=== PATIENT | male | born 1955 | race Caucasian/White ===

== ENCOUNTER 2019-11-02 09:15 | Outpatient (CLI) | payer MEDICARE, OTHER, SELFPAY ==
[2019-11-02 10:00] VITALS: BP 145/91; PULSE 66; RESP 18; TEMP 36.5; O2SAT 94
[2019-11-02] MEDS: acetaminophen 325 mg Tablet 975 MG (10:11)
[2019-11-02] MEDS: diphenhydrAMINE 25 mg Capsule (10:11)
[2019-11-02 11:23] VITALS: BP 135/86; PULSE 60; RESP 16; TEMP 36.4; O2SAT 94
--- NOTE | 2019-11-02 11:24 | PC.NURSE ---
IV dc'd from left AC. cath intact. Pressure dressing applied.
== END 2019-11-02 09:16 | disposition home or self-care (01) ==
LOC: RHEOACUTE 09:20
PROVIDERS: Family Provider Family Medicine; PCP Family Medicine; Visit Provider Internal Medicine Rheumatology
DX: M05.9 Rheumatoid arthritis with rheumatoid factor, unspecified (principal); Z79.899 Other long term (current) drug therapy; K13.70 Unspecified lesions of oral mucosa; Z79.52 Long term (current) use of systemic steroids; M19.90 Unspecified osteoarthritis, unspecified site; Z87.891 Personal history of nicotine dependence
CPT/HCPCS: 36415; 80076; 82565; 85651; 86140; 96365; 96374; 99214; J3262

== ENCOUNTER → 2019-11-02 15:05 | Outpatient (BNVA) | payer MEDICARE, SELFPAY | PROVIDERS: Family Provider Family Medicine; PCP Family Medicine; Visit Provider Internal Medicine Rheumatology | DX: M05.9 Rheumatoid arthritis with rheumatoid factor, unspecified (principal); Z79.899 Other long term (current) drug therapy; K13.70 Unspecified lesions of oral mucosa; Z71.89 Other specified counseling | CPT/HCPCS: 85025 ==

== ENCOUNTER → 2019-11-10 14:36 | Outpatient (BNVA) | payer MEDICARE, SELFPAY | PROVIDERS: Family Provider Family Medicine; PCP Family Medicine; Referring Provider Family Medicine; Visit Provider Otolaryngology | DX: K13.70 Unspecified lesions of oral mucosa (principal) | CPT/HCPCS: 99203; 99214 ==

== ENCOUNTER 2019-12-14 10:24 | Outpatient (CLI) | payer MEDICARE, OTHER, SELFPAY ==
[2019-12-14 10:45] VITALS: BP 150/88; PULSE 60; RESP 16; TEMP 36.7; O2SAT 92
[2019-12-14] MEDS: acetaminophen 325 mg Tablet 975 MG PO (11:17)
[2019-12-14] MEDS: diphenhydrAMINE 25 mg Capsule PO (11:17)
[2019-12-14 12:10] VITALS: BP 150/88; PULSE 60; RESP 16; TEMP 36.6; O2SAT 92
== END 2019-12-14 10:25 | disposition home or self-care (01) ==
LOC: RHEOACUTE 10:25
PROVIDERS: Family Provider Family Medicine; PCP Family Medicine; Visit Provider Internal Medicine Rheumatology
DX: M06.9 Rheumatoid arthritis, unspecified (principal); Z79.899 Other long term (current) drug therapy; Z11.1 Encounter for screening for respiratory tuberculosis
CPT/HCPCS: 36415; 80076; 82565; 85025; 85651; 86140; 86480; 96365; J3262

== ENCOUNTER → 2019-12-14 10:55 | Outpatient (BNVA) | payer MEDICARE, SELFPAY | PROVIDERS: Family Provider Family Medicine; PCP Family Medicine | DX: Z79.899 Other long term (current) drug therapy (principal) | CPT/HCPCS: 85025 ==

== ENCOUNTER 2020-01-02 08:26 | Outpatient (CLI) | payer MEDICARE, SELFPAY ==
--- NOTE | 2020-01-02 08:43 | MR_ITS ---
WS: [id number] INDICATION: Incidental liver mass TECHNIQUE: MRI of the abdomen without and with gadolinium enhancement. Coronal 2-D fiesta, axial T2, axial dual Echo, axial 2-D fiesta, pre and postgadolinium axial T1 fat saturation COMPARISON: Ultrasound gallbladder November 17, 2017 FINDINGS: Hepatomegaly with diffuse fatty infiltration of the liver. No intrahepatic biliary ductal d ilatation. Normal portal vein and splenic vein. T1 and T2 hyperintense lesion involving the right hep atic lobe near the diaphragm measuring approximately 2.9 x 2.7 CM. This lesion demonstrates diffuse h omogeneous enhancement on post gadolinium imaging. Imaging characteristics are nonspecific but differ ential considerations include focal nodular hyperplasia, adenoma, and atypical cavernous hemangioma. Neoplasm/HCC is not entirely excluded. Recommend followed up in [address] abdomen pelvis liver protocol or MRI. Atelectasis in the lung bases. Normal gallbladder. Normal spleen. Normal GE junction. Upper abdominal aorta is normal. No hydronephrosis in either kidney. No upper abdominal lymphadenopathy. MR/MR abdomen wo/w con* [id number] IMPRESSION: 1. T1 and T2 hyperintense lesion right hepatic lobe posteriorly near the diap hragm. This demonstrates diffuse homogeneous enhancement. Differential consider ations include focal nodular hyperplasia, hepatic adenoma, and atypical caverno us hemangioma. HCC/neoplasm is not entirely excluded. Recommend 3 month follow- up with CT abdomen pelvis liver protocol or MRI. Percutaneous biopsy would be c mayela due to location high in the right hepatic lobe. 2. Hepatomegaly with diffuse fatty infiltration. This is unchanged since the r ecent ultrasound. No intrahepatic biliary ductal dilatation. 3. No hydronephrosis in either kidney. 4. Normal visualized upper abdominal aorta. 5. Normal gallbladder.
== END 2020-01-02 08:27 | disposition home or self-care (01) ==
LOC: RADWPI 08:31
PROVIDERS: Family Provider Family Medicine; PCP Family Medicine; Visit Provider Internal Medicine
DX: R16.0 Hepatomegaly, not elsewhere classified (principal); K76.9 Liver disease, unspecified
CPT/HCPCS: 74183; A9579

== ENCOUNTER 2020-01-18 10:29 | Outpatient (CLI) | payer MEDICARE, OTHER, SELFPAY ==
[2020-01-18 10:58] VITALS: BP 164/95; PULSE 60; RESP 16; TEMP 36.5; O2SAT 94
[2020-01-18] MEDS: diphenhydrAMINE 25 mg Capsule PO (11:21)
[2020-01-18] MEDS: acetaminophen 325 mg Tablet 975 MG PO (11:21)
--- NOTE | 2020-01-18 12:29 | PC.NURSE ---
Msg sent to PCP nurse re elevated BP.
[2020-01-18] MEDS: diphenhydrAMINE 25 mg Capsule (13:02)
[2020-01-18] MEDS: acetaminophen 325 mg Tablet 975 MG (13:03)
[2020-01-18 13:04] VITALS: BP 148/89; PULSE 52; RESP 16; TEMP 36.7; O2SAT 96
== END 2020-01-18 10:30 | disposition home or self-care (01) ==
LOC: RHEOACUTE 10:30
PROVIDERS: Family Provider Family Medicine; PCP Family Medicine; Visit Provider Internal Medicine Rheumatology
DX: M05.9 Rheumatoid arthritis with rheumatoid factor, unspecified (principal); R74.8 Abnormal levels of other serum enzymes; R16.0 Hepatomegaly, not elsewhere classified; Z79.899 Other long term (current) drug therapy; M19.90 Unspecified osteoarthritis, unspecified site; Z79.52 Long term (current) use of systemic steroids
CPT/HCPCS: 96365; 99214; J3262

== ENCOUNTER 2020-02-16 08:49 | Outpatient (CLI) | payer MEDICARE, OTHER, SELFPAY ==
[2020-02-16 09:10] VITALS: BP 134/88; PULSE 59; RESP 16; TEMP 36.8; O2SAT 96
[2020-02-16] MEDS: diphenhydrAMINE 25 mg Capsule PO (09:21)
[2020-02-16] MEDS: acetaminophen 325 mg Tablet 975 MG PO (09:21)
[2020-02-16 11:05] VITALS: BP 131/86; PULSE 54; RESP 16; TEMP 36.6; O2SAT 97
== END 2020-02-16 08:50 | disposition home or self-care (01) ==
LOC: RHEOACUTE 08:51
PROVIDERS: Family Provider Family Medicine; PCP Family Medicine; Visit Provider Internal Medicine Rheumatology
DX: M06.9 Rheumatoid arthritis, unspecified (principal)
CPT/HCPCS: 96365; J3262

== ENCOUNTER 2020-03-15 08:49 | Outpatient (CLI) | payer MEDICARE, OTHER, SELFPAY ==
[2020-03-15 09:00] VITALS: BP 141/88; PULSE 59; RESP 16; TEMP 36.5; O2SAT 98
[2020-03-15] MEDS: diphenhydrAMINE 25 mg Capsule PO (09:30)
[2020-03-15] MEDS: acetaminophen 325 mg Tablet 975 MG PO (09:30)
[2020-03-15 11:11] VITALS: BP 115/77; PULSE 56; RESP 16; TEMP 36.6
== END 2020-03-15 08:50 | disposition home or self-care (01) ==
LOC: RHEOACUTE 08:50
PROVIDERS: Family Provider Family Medicine; PCP Family Medicine; Visit Provider Internal Medicine Rheumatology
DX: M05.9 Rheumatoid arthritis with rheumatoid factor, unspecified (principal); Z79.899 Other long term (current) drug therapy
CPT/HCPCS: 36415; 80076; 82565; 85025; 85651; 86140; 96365; J3262

== ENCOUNTER 2020-04-12 08:49 | Outpatient (CLI) | payer MEDICARE, SELFPAY ==
[2020-04-12 09:00] VITALS: BP 133/85; PULSE 60; RESP 16; TEMP 36.6; O2SAT 97
[2020-04-12] MEDS: acetaminophen 325 mg Tablet 975 MG PO (09:45)
[2020-04-12] MEDS: diphenhydrAMINE 25 mg Capsule PO (09:45)
[2020-04-12 11:15] VITALS: BP 147/93; PULSE 60; RESP 16; O2SAT 98
== END 2020-04-12 08:50 | disposition home or self-care (01) ==
LOC: RHEOACUTE 08:50
PROVIDERS: Family Provider Family Medicine; PCP Family Medicine; Visit Provider Internal Medicine Rheumatology
DX: M06.09 Rheumatoid arthritis without rheumatoid factor, multiple sites (principal)
CPT/HCPCS: 96365; J3262

== ENCOUNTER 2020-04-27 15:24 | Outpatient (CLI) | payer MEDICARE, SELFPAY ==
--- NOTE | 2020-04-27 | USCV_ITS ---
Sergei Gray Age: 64 Gender: M : 1955 Exam Date: 04/27/2020 15:41 Ordering Phys: Joao Harley MD Technologist: Julia Juarez [place]am Location[place] [facility] [place]ication: KNOWN THORACIC AN. BP: / HR: 67 Rhythm: Sinus Technical Quality: Adequate MEASUREMENTS (Male / Female) Normal Values 2D ECHO LV Diastolic Diameter PLAX 5.2 cm 4.2 - 5.9 / 3.9 - 5.3 cm LV Systolic Diameter PLAX 3.1 cm LV Chamber Size 3.7 cm IVS Diastolic Thickness 1.4 cm 0.6 - 1.0 / 0.6 - 0.9 cm IVS Systolic Thickness 1.8 cm LVPW Diastolic Thickness 1.4 cm 0.6 - 1.0 / 0.6 - 0.9 cm LVPW Systolic Thickness 1.5 cm RV Chamber Size 3.2 cm LVOT Diameter 2.0 cm LV Ejection Fraction 2D Teich 71.2 % LV Ejection Fraction MOD 2C 58.6 % LV Ejection Fraction 2C AL 62.6 % LA Diameter 4.3 cm LA Width 2.6 cm LA Height 4.0 cm RA Width 2.2 cm RA Height 4.4 cm Aorta at Sinotubular Diameter 4.5 cm M-MODE LV Diastolic Diameter MM 6.2 cm 4.2 - 5.9 / 3.9 - 5.3 cm LV Systolic Diameter MM 4.5 cm LV Ejection Fraction MM Teich 51.6 % IVS Diastolic Thickness MM 1.5 cm 0.6 - 1.0 / 0.6 - 0.9 cm IVS Systolic Thickness MM 1.2 cm LVPW Diastolic Thickness MM 1.4 cm 0.6 - 1.0 / 0.6 - 0.9 cm LVPW Systolic Thickness MM 1.9 cm RV Diastolic Diameter MM 1.1 cm Aortic Annulus Diameter 4.1 cm LA Ao Ratio MM 1.0 MV E Point Septal Separation 0.3 cm DOPPLER AV Peak Velocity 183.0 cm/s LVOT Peak Velocity 96.0 cm/s AV Area Cont Eq vti 1.9 cm squared AV Area Cont Eq pk 1.7 cm squared MV Area PHT 3.3 cm squared Mitral E to A Ratio 1.4 MV E' Velocity 11.0 cm/s Mitral E to MV E' Ratio 9.4 Mitral E to LV E' Lateral Ratio 9.6 Mitral E to LV E' Septal Ratio 9.3 TR Peak Velocity 297.1 cm/s TR Peak Gradient 35.3 mmHg TR Mean Velocity 239.7 cm/s TR Mean Gradient 24.7 mmHg TR Velocity Time Integral 108.8 cm TV Peak E Velocity 76.0 cm/s Right Atrial Pressure 3.0 mmHg Pulmonary Artery Systolic Pressu 38.3 mmHg PV Peak Velocity 65.0 cm/s RV Acceleration Time 0.1 s RV Ejection Time 0.4 s RV AcT/ET 0.3 FINDINGS Left Ventricle Normal left ventricular size, systolic function and wall thickness, with no regional wall motion abnormalities. Left ventricular ejection fraction is estimated at 65%. Normal diastolic function. Right Ventricle Normal right ventricular size and systolic function, RVSP 35 mmHg. Right Atrium Normal right atrial size. Right atrial pressure estimated at 8 mmHg. Left Atrium Normal left atrial size. Mitral Valve Structurally normal mitral valve. Aortic Valve Structurally normal trileaflet aortic valve. No aortic valve stenosis. No aortic valve regurgitation. Tricuspid Valve Structurally normal tricuspid valve. Trace tricuspid valve regurgitation. Pulmonic Valve Pulmonic valve not well visualized. Pericardium No pericardial effusion. Aorta Mildly dilated aortic root measured at 41 mm anteroposteriorly. Ascending aorta measured anteroposteriorly at 43 mmHg. Normal- sized aortic arch. CONCLUSIONS 1. Normal left ventricular size, systolic function and wall thickness, with no regional wall motion abnormalities. Left ventricular ejection fraction is estimated at 65%. Normal diastolic function. 2. Pulmonary artery pressure estimated at 35 mmHg. 3. No significant valvular abnormality. 4. Mildly dilated aortic root measured at 41 mm anteroposteriorly. Ascending aorta measured anteroposteriorly at 43 mmHg. 5. No prior similar studies to compare Enedelia Thurston MD (Electronically Signed) Final Date: 29 April 2020 13:06 S
== END 2020-04-27 15:25 | disposition home or self-care (01) ==
LOC: RAD 15:27
PROVIDERS: Family Provider Family Medicine; PCP Family Medicine; Visit Provider Internal Medicine
DX: I71.2 Thoracic aortic aneurysm, without rupture (principal); I25.10 Atherosclerotic heart disease of native coronary artery without angina pectoris
CPT/HCPCS: 93306

== ENCOUNTER 2020-04-30 07:58 | Outpatient (CLI) | payer MEDICARE, SELFPAY ==
--- NOTE | 2020-04-30 08:11 | MR_ITS ---
WS: [id number] MRI ABDOMEN without CONTRAST. COMPARISON: 01/02/2020 Multiplanar, multisequence imaging is performed without contrast. Today's examination was performed without contrast. Again noted is a well-circumscribed T1 and T2 mod erately hyperintense lesion in the superior RIGHT lobe of the liver, just beneath the diaphragmatic s urface. Hepatic mass measures 2.9 x 3.1 cm and has not significantly increased in size since the prio r examination. There is an additional area in the RIGHT lobe of the liver near the farhan hepatis whic h follows similar signal characteristics which may be hepatic steatosis. Liver also demonstrates mild diffuse hepatic steatosis. Gallbladder is contracted. No bile duct dilatation. There is no ascites or effusion. No adrenal mass. Spleen is normal size. Visualized aorta and pancreas are negative. MR/MR abdomen wo con [id number] IMPRESSION: 1. No change in size of the mass in the superior RIGHT lobe of the liver measu ring 2.9 x 3.1 cm. Stable since 01/02/2020. Differential includes benign and low -grade malignancy. Please note this mass does enhance on the initial MRI which was performed with contrast. Recommend continued surveillance by imaging. This lesion would be difficult to biopsy due to its position along the diaphragmatic surface. Three-phase hepatic CT would provide additional information if that h as not been performed. There are no prior hepatic CTs for comparison. 2. Gallbladder is contracted.
== END 2020-04-30 07:59 | disposition home or self-care (01) ==
LOC: RADWPI 08:04
PROVIDERS: Family Provider Family Medicine; PCP Family Medicine; Visit Provider Internal Medicine
DX: R16.0 Hepatomegaly, not elsewhere classified (principal)
CPT/HCPCS: 74181

== ENCOUNTER 2020-05-21 08:57 | Outpatient (CLI) | payer MEDICARE, SELFPAY ==
[2020-05-21 09:03] VITALS: BP 142/87; PULSE 60; RESP 16; TEMP 36.9; O2SAT 96
[2020-05-21] MEDS: diphenhydrAMINE 25 mg Capsule PO (09:15)
[2020-05-21] MEDS: acetaminophen 325 mg Tablet 975 MG PO (09:15)
[2020-05-21 09:29] VITALS: BMI 31.5
[2020-05-21 11:08] VITALS: BP 123/83; PULSE 54; RESP 16
--- NOTE | 2020-05-21 11:37 | PC.NURSE ---
Reviewed home meds. Edits made. List provided.
== END 2020-05-21 08:58 | disposition home or self-care (01) ==
LOC: RHEOACUTE 08:59
PROVIDERS: Family Provider Family Medicine; PCP Family Medicine; Visit Provider Internal Medicine Rheumatology
DX: M06.9 Rheumatoid arthritis, unspecified (principal)
CPT/HCPCS: 96365; J3262

== ENCOUNTER 2020-06-18 08:59 | Outpatient (CLI) | payer MEDICARE, SELFPAY ==
[2020-06-18 09:07] VITALS: BP 137/92; PULSE 62; RESP 16; TEMP 36.3; O2SAT 97
[2020-06-18] MEDS: acetaminophen 325 mg Tablet 975 MG PO (09:07)
[2020-06-18] MEDS: diphenhydrAMINE 25 mg Capsule PO (09:07)
[2020-06-18 10:18] VITALS: BMI 31.7
[2020-06-18 11:05] VITALS: BP 125/84; PULSE 56; RESP 16; O2SAT 97
== END 2020-06-18 09:00 | disposition home or self-care (01) ==
LOC: RHEOACUTE 09:00
PROVIDERS: Family Provider Family Medicine; PCP Family Medicine; Visit Provider Internal Medicine Rheumatology
DX: M05.9 Rheumatoid arthritis with rheumatoid factor, unspecified (principal); Z79.899 Other long term (current) drug therapy
CPT/HCPCS: 80076; 82565; 85025; 85651; 86140; 96365; J3262

== ENCOUNTER 2020-07-26 12:52 | Outpatient (CLI) | payer MEDICARE, SELFPAY ==
[2020-07-26 12:57] VITALS: BP 134/79; PULSE 70; RESP 16; TEMP 36.7; O2SAT 94
[2020-07-26 12:58] VITALS: BMI 32.3
[2020-07-26] MEDS: acetaminophen 325 mg Tablet 975 MG PO (13:30)
[2020-07-26] MEDS: diphenhydrAMINE 25 mg Capsule PO (13:30)
[2020-07-26 15:20] VITALS: BP 115/77; PULSE 61; RESP 16
== END 2020-07-26 12:53 | disposition home or self-care (01) ==
LOC: RHEOACUTE 12:54
PROVIDERS: Family Provider Family Medicine; PCP Family Medicine; Visit Provider Internal Medicine Rheumatology
DX: M06.09 Rheumatoid arthritis without rheumatoid factor, multiple sites (principal)
CPT/HCPCS: 96365; J3262

== ENCOUNTER 2020-09-05 09:58 | Outpatient (CLI) | payer MEDICARE, SELFPAY ==
[2020-09-05 09:45] VITALS: BP 164/100; PULSE 59; RESP 16; TEMP 36.2; O2SAT 96
[2020-09-05] MEDS: diphenhydrAMINE 25 mg Capsule PO (10:20)
[2020-09-05] MEDS: acetaminophen 500 mg Tablet PO (10:20)
--- NOTE | 2020-09-05 11:10 | PC.NURSE ---
0945 Pt c/o severe pain in L foot. States he's in a flare and foot has been hurting since last week. States he needs an injection. States unable to sleep or tolerate any pressure not even sheets on his foot. Dr. Blake's nurse Aida AHUJA notified.
--- NOTE | 2020-09-05 12:03 | PC.NURSE ---
1020 labs obtained with IV start.
[2020-09-05 12:13] VITALS: BP 142/91; PULSE 54; RESP 16; O2SAT 96
== END 2020-09-05 09:59 | disposition home or self-care (01) ==
LOC: RHEOACUTE 09:59
PROVIDERS: Family Provider Family Medicine; PCP Family Medicine; Visit Provider Internal Medicine Rheumatology
DX: Z79.899 Other long term (current) drug therapy; M05.79 Rheumatoid arthritis with rheumatoid factor of multiple sites without organ or systems involvement; Z79.52 Long term (current) use of systemic steroids; M19.90 Unspecified osteoarthritis, unspecified site; K75.81 Nonalcoholic steatohepatitis (NASH); R16.0 Hepatomegaly, not elsewhere classified; Z87.891 Personal history of nicotine dependence
CPT/HCPCS: 80076; 82565; 84550; 85025; 85651; 86140; 96365; 96375; 99214; J2920; J3262

== ENCOUNTER 2020-10-16 09:50 | Outpatient (CLI) | payer MEDICARE, OTHER, SELFPAY ==
[2020-10-16 10:05] VITALS: BP 124/80; PULSE 61; RESP 16; TEMP 35.8; O2SAT 94
[2020-10-16] MEDS: diphenhydrAMINE 25 mg Capsule PO (10:22)
[2020-10-16] MEDS: acetaminophen 500 mg Tablet PO (10:22)
[2020-10-16 12:15] VITALS: BMI 33.9
[2020-10-16 12:17] VITALS: BP 112/72; PULSE 54; RESP 16; O2SAT 98
--- NOTE | 2020-10-16 12:18 | PC.NURSE ---
lab drawn from IV 10min after infusion completed.
== END 2020-10-16 09:51 | disposition home or self-care (01) ==
LOC: RHEOACUTE 09:51
PROVIDERS: Family Provider Family Medicine; PCP Family Medicine; Visit Provider Internal Medicine Rheumatology
DX: M05.79 Rheumatoid arthritis with rheumatoid factor of multiple sites without organ or systems involvement (principal); Z79.899 Other long term (current) drug therapy; Z79.52 Long term (current) use of systemic steroids; K75.81 Nonalcoholic steatohepatitis (NASH); R16.0 Hepatomegaly, not elsewhere classified; M19.171 Post-traumatic osteoarthritis, right ankle and foot; M10.9 Gout, unspecified; Z87.891 Personal history of nicotine dependence
CPT/HCPCS: 84550; 96365; 96375; 99214; J2920; J3262

== ENCOUNTER 2020-10-29 09:08 | Outpatient (CLI) | payer MEDICARE, SELFPAY ==
--- NOTE | 2020-10-29 09:22 | MR_ITS ---
WS: [id number] INDICATION: Hepatomegaly TECHNIQUE: MR of the abdomen without and with gadolinium enhancement. Axial T2, dual Echo, axial 2-D fiesta, coronal 2-D fiesta, axial T1 fat sat, pre and post gadolinium multiplanar imaging was obtaine d with fat saturation technique. FINDINGS: Comparison MRI abdomen 04/30/2020 and 01/02/2020. Hepatomegaly with diffuse fatty infiltration. No intrahepatic biliary ductal dilatation. Portal vein and splenic vein are patent. Again seen is the T1 and T2 hyperintense lesion involving the right hepa tic lobe near the diaphragm not significantly changed since the prior 2 examinations today measuring 2.5 x 2.8 cm. This demonstrates diffuse homogeneous enhancement unchanged. Differential consideration s are unchanged including FNH, adenoma, or atypical cavernous hemangioma. Neoplasm not entirely exclu ded and recommend continued surveillance. Normal gallbladder. Normal spleen. Normal GE junction. Upper abdominal aorta is normal. No hydronephr osis in either kidney. MR/MR abdomen wo/w con* [id number] IMPRESSION: 1. No significant change in the enhancing lesion right hepatic lobe. Different ial considerations are unchanged and include focal nodular hyperplasia, hepatic adenoma, and atypical cavernous hemangioma. HCC/neoplasm is not excluded. Aroldo mmend continued surveillance. This is not readily amenable to percutaneous biop sy as previously described. 2. Hepatomegaly with diffuse fatty infiltration. 3. No intrahepatic biliary ductal dilatation. 4. No hydronephrosis in either kidney. 5. Normal gallbladder.
== END 2020-10-29 09:09 | disposition home or self-care (01) ==
PROVIDERS: PCP Family Medicine; Visit Provider Internal Medicine
DX: R16.0 Hepatomegaly, not elsewhere classified (principal); K76.0 Fatty (change of) liver, not elsewhere classified
CPT/HCPCS: 74183; A9577

== ENCOUNTER 2020-11-14 08:53 | Outpatient (CLI) | payer MEDICARE, OTHER, SELFPAY ==
[2020-11-14] MEDS: acetaminophen 325 mg Tablet 650 MG PO (09:15)
[2020-11-14] MEDS: diphenhydrAMINE 25 mg Capsule PO (09:15)
[2020-11-14 09:34] LABS: Basophils # 0.1 10^3/uL (0.0-0.1); Basophils % 1.4 %; Eosinophils # 0.2 10^3/uL (0.0-0.8); Eosinophils % 4.1 %; Hematocrit 46.8 % (42.0-52.0); Hemoglobin 15.2 g/dL (11.7-16.6); Lymphocytes # 1.5 10^3/uL (0.8-4.8); Lymphocytes % 28.4 %; Mean Corpuscular HGB Conc 32.5 g/dL (30.0-36.0); Mean Corpuscular Hemoglobin 31.9 pg (28.0-34.0); Mean Corpuscular Volume 98.1 fL (80-94); Mean Platelet Volume 9.1 fL (7.4-10.4); Monocytes # 0.5 10^3/uL (0.2-0.9); Monocytes % 9.8 %; Neutrophils # 2.89 10^3/uL (1.8-7.7); Neutrophils % 55.7 %; Nucleated Red Blood Cells % 0 %; Platelet Count 141 10^3/cmm (130-400); Red Blood Count 4.77 10^6/uL (4.1-5.3); Red Cell Distribution Width 13.6 % (12.1-15.1); White Blood Count 5.2 10^3/uL (4.0-10.0)
[2020-11-14 09:43] VITALS: BP 132/80; PULSE 60; RESP 18; TEMP 36.4; O2SAT 99
[2020-11-14 09:51] LABS: Alanine Aminotransferase 67 U/L (0-41); Albumin Level 4.3 g/dL (3.5-5.2); Alkaline Phosphatase 65 IU/L (40-130); Aspartate Amino Transferase 37 U/L (0-40); C Reactive Protein 0.6 mg/L (0.0-4.9); Globulin 2.4 g/dL (1.3-4.6); Glomerular Filtration Rate 85.5 mL/min (90-130); Total Bilirubin 0.4 mg/dL (0.15-1.2); Total Protein 6.7 g/dL (6.6-8.7)
[2020-11-14 10:11] VITALS: BP 133/86; PULSE 59; RESP 18; TEMP 36.8; O2SAT 97
--- NOTE | 2020-12-04 08:42 | PC.NURSE ---
Addendum entered by Bettye Sorensen RN 01/21/21 09:46: Timed out 10:33AM of infusion of Tociliaumab 01-09-2021 Original Note: Due to an administrative issue we are doing a late entry for clarity of the medical record. The infusion case was routine and the approximate stop time was 1033 based upon the start time of 0933.
== END 2020-11-14 08:54 | disposition home or self-care (01) ==
PROVIDERS: PCP Family Medicine; Visit Provider Internal Medicine Rheumatology
DX: M06.9 Rheumatoid arthritis, unspecified (principal)
CPT/HCPCS: 80076; 82565; 85025; 86140; 96365; 96375; J2920; J3262

== ENCOUNTER 2020-12-12 08:57 | Outpatient (CLI) | payer MEDICARE, OTHER, SELFPAY ==
[2020-12-12 09:30] VITALS: BP 142/84; PULSE 69; RESP 18; TEMP 36.9; O2SAT 95
[2020-12-12] MEDS: acetaminophen 500 mg Tablet PO (09:30)
[2020-12-12] MEDS: sodium chloride 0.9% 250 ML IV (09:30)
[2020-12-12] MEDS: diphenhydrAMINE 25 mg Capsule PO (09:30)
[2020-12-12 10:55] VITALS: BP 133/84; PULSE 68; RESP 18; TEMP 36.7; O2SAT 94
== END 2020-12-12 08:58 | disposition home or self-care (01) ==
LOC: ONCMED 09:00
PROVIDERS: PCP Family Medicine; Visit Provider Internal Medicine Rheumatology
DX: M06.9 Rheumatoid arthritis, unspecified (principal)
CPT/HCPCS: 96365; 96375; J2920; J3262; J7050

== ENCOUNTER 2021-01-09 09:47 | Outpatient (CLI) | payer MEDICARE, SELFPAY ==
[2021-01-09] MEDS: acetaminophen 500 mg Tablet PO (10:15)
[2021-01-09] MEDS: diphenhydrAMINE 25 mg Capsule PO (10:15)
[2021-01-09 11:10] LABS: Basophils % 0.9 %; Eosinophils # 0.1 10^3/uL (0.0-0.8); Eosinophils % 3.1 %; Hematocrit 46.7 % (42.0-52.0); Hemoglobin 15.5 g/dL (11.7-16.6); Lymphocytes # 1.1 10^3/uL (0.8-4.8); Lymphocytes % 24.2 %; Mean Corpuscular HGB Conc 33.2 g/dL (30.0-36.0); Mean Corpuscular Hemoglobin 32.4 pg (28.0-34.0); Mean Corpuscular Volume 97.7 fL (80-94); Mean Platelet Volume 9.2 fL (7.4-10.4); Monocytes # 0.5 10^3/uL (0.2-0.9); Neutrophils # 2.74 10^3/uL (1.8-7.7); Neutrophils % 60.9 %; Nucleated Red Blood Cells % 0 %; Platelet Count 139 10^3/cmm (130-400); Red Blood Count 4.78 10^6/uL (4.1-5.3); Red Cell Distribution Width 13.6 % (12.1-15.1); White Blood Count 4.5 10^3/uL (4.0-10.0)
[2021-01-09 12:05] LABS: Alanine Aminotransferase 73 U/L (0-41); Albumin Level 4.3 g/dL (3.5-5.2); Alkaline Phosphatase 59 IU/L (40-130); Aspartate Amino Transferase 39 U/L (0-40); C Reactive Protein 0.6 mg/L (0.0-4.9); Globulin 1.8 g/dL (1.3-4.6); Glomerular Filtration Rate 97.6 mL/min (90-130); Total Bilirubin 0.4 mg/dL (0.15-1.2); Total Protein 6.1 g/dL (6.6-8.7)
--- NOTE | 2021-01-21 09:58 | PC.NURSE ---
Tolicilizumab 800mg IV started at 10:50am 01-09-2021 Tolicilzumab 800mg IV ended at 11:50am 01-09-2021 Patient's IV flushed and ended with no reddness or issues with the site. He left the unit to go home ambulatory.
--- NOTE | 2021-01-21 10:16 | PC.NURSE ---
Tocilizumab 800mg IV started 01-09-2021 10:50 am per IV pump Tocilizumab 800mg IV discontinued and ended 11:50 Patient left the suite ambulatory with no issues with the infusion site that was discontinued and secured with 2x2 and coban.mm
== END 2021-01-09 09:48 | disposition home or self-care (01) ==
LOC: ONCMED 09:50
PROVIDERS: PCP Family Medicine; Visit Provider Internal Medicine Rheumatology
DX: M06.9 Rheumatoid arthritis, unspecified (principal)
CPT/HCPCS: 80076; 82565; 85025; 86140; 96365; 96375; J2920; J3262

== ENCOUNTER 2021-02-06 13:40 | Outpatient (CLI) | payer MEDICARE, SELFPAY ==
[2021-02-06 13:54] VITALS: BP 125/78; PULSE 64; RESP 20; TEMP 36.9; O2SAT 94
[2021-02-06] MEDS: acetaminophen 500 mg Tablet PO (14:10)
[2021-02-06] MEDS: diphenhydrAMINE 25 mg Capsule PO (14:10)
[2021-02-06] MEDS: sodium chloride 0.9% 250 ML 999 ML IV (14:16)
== END 2021-02-06 13:41 | disposition home or self-care (01) ==
PROVIDERS: PCP Family Medicine; Visit Provider Internal Medicine Rheumatology
DX: M06.9 Rheumatoid arthritis, unspecified (principal)
CPT/HCPCS: 96365; 96375; J2920; J3262; J7050

== ENCOUNTER → 2021-02-20 14:19 | Outpatient (BNVA) | payer MEDICARE, SELFPAY | PROVIDERS: PCP Family Medicine; Visit Provider Internal Medicine Rheumatology | DX: M05.79 Rheumatoid arthritis with rheumatoid factor of multiple sites without organ or systems involvement (principal); M10.9 Gout, unspecified; Z79.899 Other long term (current) drug therapy; K75.81 Nonalcoholic steatohepatitis (NASH); M19.90 Unspecified osteoarthritis, unspecified site; F17.210 Nicotine dependence, cigarettes, uncomplicated | CPT/HCPCS: 99214 ==

== ENCOUNTER 2021-03-13 13:11 | Outpatient (CLI) | payer MEDICARE, SELFPAY ==
[2021-03-13 13:39] VITALS: BP 133/81; PULSE 55; RESP 18; TEMP 36.9; O2SAT 94
[2021-03-13 14:13] LABS: Basophils % 0.6 %; Eosinophils # 0.1 10^3/uL (0.0-0.8); Eosinophils % 2.5 %; Hematocrit 45.9 % (42.0-52.0); Hemoglobin 15.4 g/dL (11.7-16.6); Lymphocytes % 18.6 %; Mean Corpuscular HGB Conc 33.6 g/dL (30.0-36.0); Mean Corpuscular Hemoglobin 33.3 pg (28.0-34.0); Mean Corpuscular Volume 99.1 fL (80-94); Mean Platelet Volume 9.7 fL (7.4-10.4); Monocytes # 0.4 10^3/uL (0.2-0.9); Monocytes % 8.4 %; Neutrophils # 3.53 10^3/uL (1.8-7.7); Neutrophils % 69.3 %; Nucleated Red Blood Cells % 0 %; Platelet Count 145 10^3/cmm (130-400); Red Blood Count 4.63 10^6/uL (4.1-5.3); Red Cell Distribution Width 13.5 % (12.1-15.1); White Blood Count 5.1 10^3/uL (4.0-10.0)
[2021-03-13] MEDS: sodium chloride 0.9% 250 ML 75 ML IV (14:13)
[2021-03-13] MEDS: acetaminophen 500 mg Tablet PO (14:15)
[2021-03-13] MEDS: diphenhydrAMINE 25 mg Capsule PO (14:15)
[2021-03-13 14:31] LABS: Alanine Aminotransferase 44 U/L (0-41); Albumin Level 4.6 g/dL (3.5-5.2); Alkaline Phosphatase 54 IU/L (40-130); Aspartate Amino Transferase 30 U/L (0-40); C Reactive Protein 0.3 mg/L (0.0-4.9); Chol HDL Ratio 2.48 mg/dL (1.0-5.00); Cholesterol 104 mg/dL (0-200); Globulin 2.1 g/dL (1.3-4.6); Glomerular Filtration Rate 97.6 mL/min (90-130); HDL Cholesterol 42 mg/dL (60-100); LDL Cholesterol Calculated 44 mg/dL (50-129); LDL HDL Ratio 1.05 RATIO (0.00-3.22); Total Bilirubin 0.6 mg/dL (0.15-1.2); Total Protein 6.7 g/dL (6.6-8.7); Triglycerides 92 mg/dL (0-150)
[2021-03-13 15:47] VITALS: BP 130/77; PULSE 50; RESP 18; TEMP 36.7; O2SAT 95
== END 2021-03-13 13:12 | disposition home or self-care (01) ==
PROVIDERS: PCP Family Medicine; Referring Provider Internal Medicine Rheumatology; Visit Provider Internal Medicine Rheumatology
DX: M06.9 Rheumatoid arthritis, unspecified (principal); E78.00 Pure hypercholesterolemia, unspecified
CPT/HCPCS: 80061; 80076; 82565; 85025; 86140; 96365; 96375; J2920; J3262; J7050

== ENCOUNTER 2021-04-11 09:02 | Outpatient (CLI) | payer MEDICARE, SELFPAY ==
[2021-04-11 09:19] VITALS: BP 151/96; PULSE 61; RESP 18; TEMP 36.7; O2SAT 95
[2021-04-11] MEDS: acetaminophen 500 mg Tablet PO (09:40)
[2021-04-11] MEDS: diphenhydrAMINE 25 mg Capsule PO (09:40)
[2021-04-11] MEDS: sodium chloride 0.9% 250 ML 75 ML IV (09:40)
[2021-04-11 11:14] VITALS: BP 154/89; PULSE 56; RESP 18; TEMP 36.7; O2SAT 98
== END 2021-04-11 09:03 | disposition home or self-care (01) ==
PROVIDERS: PCP Family Medicine; Referring Provider Internal Medicine Rheumatology; Visit Provider Internal Medicine Medical Oncology
DX: M06.9 Rheumatoid arthritis, unspecified (principal)
CPT/HCPCS: 96365; 96375; J2920; J3262; J7050

== ENCOUNTER 2021-05-09 12:56 | Outpatient (CLI) | payer MEDICARE, SELFPAY ==
[2021-05-09 13:08] VITALS: BP 137/84; PULSE 66; RESP 18; TEMP 36.9; O2SAT 94
[2021-05-09] MEDS: diphenhydrAMINE 25 mg Capsule PO (14:03)
[2021-05-09] MEDS: acetaminophen 500 mg Tablet PO (14:03)
[2021-05-09] MEDS: sodium chloride 0.9% 250 ML 75 ML IV (14:06)
[2021-05-09 15:14] LABS: Basophils # 0.1 10^3/uL (0.0-0.1); Eosinophils # 0.2 10^3/uL (0.0-0.8); Eosinophils % 2.9 %; Hematocrit 46.4 % (42.0-52.0); Hemoglobin 15.1 g/dL (11.7-16.6); Lymphocytes # 0.8 10^3/uL (0.8-4.8); Lymphocytes % 15.4 %; Mean Corpuscular HGB Conc 32.5 g/dL (30.0-36.0); Mean Corpuscular Hemoglobin 32.2 pg (28.0-34.0); Mean Corpuscular Volume 98.9 fL (80-94); Mean Platelet Volume 10.1 fL (7.4-10.4); Monocytes # 0.4 10^3/uL (0.2-0.9); Monocytes % 8.1 %; Neutrophils # 3.74 10^3/uL (1.8-7.7); Neutrophils % 71.8 %; Nucleated Red Blood Cells % 0 %; Platelet Count 142 10^3/cmm (130-400); Red Blood Count 4.69 10^6/uL (4.1-5.3); White Blood Count 5.2 10^3/uL (4.0-10.0)
[2021-05-09 15:17] VITALS: BP 130/88; PULSE 57; RESP 18; TEMP 36.6; O2SAT 95
[2021-05-09 15:35] LABS: Alanine Aminotransferase 47 U/L (0-41); Albumin Level 4.3 g/dL (3.5-5.2); Alkaline Phosphatase 52 IU/L (40-130); Aspartate Amino Transferase 28 U/L (0-40); C Reactive Protein 0.3 mg/L (0.0-4.9); Chol HDL Ratio 4.71 mg/dL (1.0-5.00); Cholesterol 179 mg/dL (0-200); Glomerular Filtration Rate 97.6 mL/min (90-130); HDL Cholesterol 38 mg/dL (60-100); LDL Cholesterol Calculated 98 mg/dL (50-129); LDL HDL Ratio 2.58 RATIO (0.00-3.22); Total Bilirubin 0.3 mg/dL (0.15-1.2); Total Protein 6.3 g/dL (6.6-8.7); Triglycerides 215 mg/dL (0-150)
== END 2021-05-09 12:57 | disposition home or self-care (01) ==
LOC: ONCMED 13:00
PROVIDERS: PCP Family Medicine; Visit Provider Internal Medicine Rheumatology
DX: M06.9 Rheumatoid arthritis, unspecified (principal); N40.0 Benign prostatic hyperplasia without lower urinary tract symptoms; E78.00 Pure hypercholesterolemia, unspecified
CPT/HCPCS: 80061; 80076; 82565; 84153; 85025; 86140; 96365; 96375; J2920; J3262; J7050

== ENCOUNTER 2021-06-06 08:55 | Outpatient (CLI) | payer MEDICARE, SELFPAY ==
[2021-06-06 09:03] VITALS: BP 136/93; PULSE 72; RESP 18; TEMP 36.2; O2SAT 98
[2021-06-06] MEDS: acetaminophen 500 mg Tablet PO (09:23)
[2021-06-06] MEDS: diphenhydrAMINE 25 mg Capsule PO (09:23)
[2021-06-06] MEDS: sodium chloride 0.9% 250 ML 75 ML IV (09:25)
[2021-06-06 10:43] VITALS: BP 133/83; PULSE 55; RESP 18; TEMP 36.2; O2SAT 95
== END 2021-06-06 08:56 | disposition home or self-care (01) ==
PROVIDERS: PCP Family Medicine; Visit Provider Internal Medicine Rheumatology
DX: M06.9 Rheumatoid arthritis, unspecified (principal)
CPT/HCPCS: 96365; 96375; J2920; J3262; J7050

== ENCOUNTER → 2021-06-11 15:09 | Outpatient (BNVA) | payer MEDICARE, SELFPAY | PROVIDERS: PCP Family Medicine; Visit Provider Internal Medicine Rheumatology | DX: M05.79 Rheumatoid arthritis with rheumatoid factor of multiple sites without organ or systems involvement (principal); M10.9 Gout, unspecified; K75.81 Nonalcoholic steatohepatitis (NASH); Z79.899 Other long term (current) drug therapy; M19.90 Unspecified osteoarthritis, unspecified site; Z71.89 Other specified counseling; F17.220 Nicotine dependence, chewing tobacco, uncomplicated | CPT/HCPCS: 99214 ==

== ENCOUNTER 2021-07-04 08:41 | Outpatient (CLI) | payer MEDICARE, SELFPAY ==
[2021-07-04 08:51] VITALS: BP 148/90; PULSE 72; RESP 18; TEMP 36.9; O2SAT 95
[2021-07-04] MEDS: acetaminophen 500 mg Tablet PO (09:14)
[2021-07-04] MEDS: diphenhydrAMINE 25 mg Capsule PO (09:14)
[2021-07-04] MEDS: sodium chloride 0.9% 250 ML 75 ML IV (09:16)
[2021-07-04 10:53] VITALS: BP 123/82; PULSE 65; RESP 18; TEMP 36.7; O2SAT 96
== END 2021-07-04 08:42 | disposition home or self-care (01) ==
LOC: ONCMED 08:43
PROVIDERS: PCP Family Medicine; Referring Provider Internal Medicine Rheumatology; Visit Provider Internal Medicine Rheumatology
DX: M06.9 Rheumatoid arthritis, unspecified (principal)
CPT/HCPCS: 96365; 96375; J2920; J3262; J7050

== ENCOUNTER 2021-08-01 09:47 | Outpatient (CLI) | payer MEDICARE, SELFPAY ==
[2021-08-01 10:04] VITALS: BP 143/86; PULSE 65; RESP 18; TEMP 36.3; O2SAT 98
[2021-08-01] MEDS: diphenhydrAMINE 25 mg Capsule PO (10:30)
[2021-08-01] MEDS: acetaminophen 500 mg Tablet PO (10:30)
[2021-08-01] MEDS: sodium chloride 0.9% 250 ML 75 ML IV (10:32)
[2021-08-01 10:40] LABS: Basophils # 0.1 10^3/uL (0.0-0.1); Basophils % 1.3 %; Eosinophils # 0.2 10^3/uL (0.0-0.8); Eosinophils % 4.3 %; Hemoglobin 15.8 g/dL (11.7-16.6); Lymphocytes # 1.2 10^3/uL (0.8-4.8); Lymphocytes % 29.6 %; Mean Corpuscular HGB Conc 32.9 g/dL (30.0-36.0); Mean Corpuscular Hemoglobin 32.5 pg (28.0-34.0); Mean Corpuscular Volume 98.8 fl (80-94); Mean Platelet Volume 9.4 fL (7.4-10.4); Monocytes # 0.3 10^3/uL (0.2-0.9); Monocytes % 7.7 %; Neutrophils # 2.22 10^3/uL (1.8-7.7); Neutrophils % 56.6 %; Nucleated Red Blood Cells % 0 %; Platelet Count 128 10^3/cmm (130-400); Red Blood Count 4.86 10^6/uL (4.1-5.3); Red Cell Distribution Width 13.1 % (12.1-15.1); White Blood Count 3.9 10^3/uL (4.0-10.0)
[2021-08-01 10:55] LABS: Alanine Aminotransferase 124 U/L (0-41); Albumin Level 4.4 g/dL (3.5-5.2); Alkaline Phosphatase 55 IU/L (40-130); Aspartate Amino Transferase 65 U/L (0-40); C Reactive Protein 0.7 mg/L (0.0-4.9); Glomerular Filtration Rate 113.9 mL/min (90-130); Total Bilirubin 0.5 mg/dL (0.15-1.2); Total Protein 6.4 g/dL (6.6-8.7)
[2021-08-01 12:10] VITALS: BP 159/91; PULSE 65; RESP 18; TEMP 36.6; O2SAT 95
== END 2021-08-01 09:48 | disposition home or self-care (01) ==
PROVIDERS: PCP Family Medicine; Visit Provider Internal Medicine Rheumatology
DX: M06.9 Rheumatoid arthritis, unspecified (principal); Z79.899 Other long term (current) drug therapy
CPT/HCPCS: 80076; 82565; 85025; 86140; 96365; 96375; J2920; J3262; J7050

== ENCOUNTER 2021-08-28 11:05 | Outpatient (CLI) | payer MEDICARE, SELFPAY ==
[2021-08-28 11:17] VITALS: BP 135/83; PULSE 63; RESP 18; TEMP 36.5; O2SAT 98
[2021-08-28] MEDS: sodium chloride 0.9% 250 ML 75 ML IV (12:04)
[2021-08-28] MEDS: acetaminophen 325 mg Tablet 650 MG PO (12:04)
[2021-08-28] MEDS: diphenhydrAMINE 50 mg/mL SDV 1mL 25 MG IV (12:05)
[2021-08-28 12:16] LABS: Basophils # 0.1 10^3/uL (0.0-0.1); Basophils % 0.9 %; Eosinophils # 0.2 10^3/uL (0.0-0.8); Eosinophils % 3.5 %; Hematocrit 44.7 % (42.0-52.0); Hemoglobin 15.4 g/dL (11.7-16.6); Lymphocytes # 1.3 10^3/uL (0.8-4.8); Mean Corpuscular HGB Conc 34.5 g/dL (30.0-36.0); Mean Corpuscular Volume 95.9 fl (80-94); Mean Platelet Volume 9.8 fL (7.4-10.4); Monocytes # 0.5 10^3/uL (0.2-0.9); Monocytes % 9.5 %; Neutrophils # 3.34 10^3/uL (1.8-7.7); Neutrophils % 61.2 %; Nucleated Red Blood Cells % 0 %; Platelet Count 138 10^3/cmm (130-400); Red Blood Count 4.66 10^6/uL (4.1-5.3); Red Cell Distribution Width 13.2 % (12.1-15.1); White Blood Count 5.5 10^3/uL (4.0-10.0)
[2021-08-28 12:33] LABS: Alanine Aminotransferase 107 U/L (0-41); Albumin Level 4.5 g/dL (3.5-5.2); Alkaline Phosphatase 59 IU/L (40-130); Anion Gap 12.2 (5-19); Aspartate Amino Transferase 55 U/L (0-40); Blood Urea Nitrogen 12 mg/dL (8-23); Calcium 8.7 mg/dL (8.5-10.5); Carbon Dioxide 30 mmol/L (22-29); Chloride 102 mmol/L (98-107); Chol HDL Ratio 4.51 mg/dL (1.0-5.00); Cholesterol 194 mg/dL (0-200); Globulin 1.9 g/dL (1.3-4.6); Glomerular Filtration Rate 113.9 mL/min (90-130); Glucose 98 mg/dL (65-115); HDL Cholesterol 43 mg/dL (60-100); LDL Cholesterol Calculated 110 mg/dL (50-129); LDL HDL Ratio 2.56 RATIO (0.00-3.22); Osmolality Calculated 290 mOsm/kg (285-295); Potassium 4.2 mmol/L (3.5-5.1); Sodium 140 mmol/L (136-145); Thyroid Stimulating Hormone 1.34 uIU/mL (0.27-4.20); Total Bilirubin 0.3 mg/dL (0.15-1.2); Total Protein 6.4 g/dL (6.6-8.7); Triglycerides 204 mg/dL (0-150); Uric Acid 5.4 mg/dL (3.4-7.0)
[2021-08-28 12:57] LABS: Slide Review Slide Review Perform
[2021-08-28 13:30] VITALS: BP 127/87; PULSE 54; RESP 18; TEMP 36.6; O2SAT 98
== END 2021-08-28 11:06 | disposition home or self-care (01) ==
PROVIDERS: PCP Family Medicine; Referring Provider Internal Medicine Rheumatology; Visit Provider Internal Medicine Rheumatology
DX: M06.9 Rheumatoid arthritis, unspecified (principal); Z79.899 Other long term (current) drug therapy
CPT/HCPCS: 80053; 80061; 84443; 84550; 85025; 96365; 96375; J1200; J2920; J3262; J7050

== ENCOUNTER → 2021-09-04 14:00 | Outpatient (BNVA) | payer MEDICARE, SELFPAY | PROVIDERS: PCP Family Medicine; Visit Provider Family Medicine | DX: L98.9 Disorder of the skin and subcutaneous tissue, unspecified (principal) | CPT/HCPCS: 88305 ==

== ENCOUNTER 2021-09-25 10:47 | Outpatient (CLI) | payer MEDICARE, SELFPAY ==
[2021-09-25 11:11] VITALS: BP 143/92; PULSE 65; RESP 18; TEMP 36.5; O2SAT 99
[2021-09-25] MEDS: acetaminophen 325 mg Tablet 650 MG PO (11:36)
[2021-09-25] MEDS: sodium chloride 0.9% 250 ML 75 ML IV (11:38)
[2021-09-25] MEDS: diphenhydrAMINE 50 mg/mL SDV 1mL 25 MG IV (11:39)
[2021-09-25 11:46] LABS: Basophils # 0.1 10^3/uL (0.0-0.1); Basophils % 1.2 %; Eosinophils # 0.2 10^3/uL (0.0-0.8); Eosinophils % 5.5 %; Hematocrit 48.2 % (42.0-52.0); Hemoglobin 15.9 g/dL (11.7-16.6); Lymphocytes # 1.2 10^3/uL (0.8-4.8); Lymphocytes % 30.2 %; Mean Corpuscular Hemoglobin 32.3 pg (28.0-34.0); Mean Platelet Volume 9.5 fL (7.4-10.4); Monocytes # 0.4 10^3/uL (0.2-0.9); Neutrophils % 52.4 %; Nucleated Red Blood Cells % 0 %; Platelet Count 140 10^3/cmm (130-400); Red Blood Count 4.92 10^6/uL (4.1-5.3); Red Cell Distribution Width 13.2 % (12.1-15.1)
[2021-09-25 11:53] LABS: Alanine Aminotransferase 132 U/L (0-41); Albumin Level 4.5 g/dL (3.5-5.2); Alkaline Phosphatase 62 IU/L (40-130); Aspartate Amino Transferase 60 U/L (0-40); Globulin 1.9 g/dL (1.3-4.6); Glomerular Filtration Rate 97.6 mL/min (90-130); Total Bilirubin 0.4 mg/dL (0.15-1.2); Total Protein 6.4 g/dL (6.6-8.7)
[2021-09-25 12:15] LABS: Erythrocyte Sedimentation Rate < 1 mm/hr (0-10)
[2021-09-25 13:01] VITALS: BP 122/81; PULSE 62; RESP 18; TEMP 36.5; O2SAT 99
== END 2021-09-25 10:48 | disposition home or self-care (01) ==
LOC: ONCMED 10:57
PROVIDERS: PCP Family Medicine; Referring Provider Internal Medicine Rheumatology; Visit Provider Family Medicine
DX: M06.9 Rheumatoid arthritis, unspecified (principal); Z79.899 Other long term (current) drug therapy
CPT/HCPCS: 80076; 82565; 85025; 85651; 96365; 96375; J1200; J2920; J3262; J7050

== ENCOUNTER → 2021-10-17 10:14 | Outpatient (BNVA) | payer MEDICARE, SELFPAY | PROVIDERS: PCP Family Medicine; Visit Provider Internal Medicine Rheumatology | DX: M05.79 Rheumatoid arthritis with rheumatoid factor of multiple sites without organ or systems involvement (principal); Z79.899 Other long term (current) drug therapy; M10.9 Gout, unspecified; Z71.89 Other specified counseling; Z79.52 Long term (current) use of systemic steroids; F17.210 Nicotine dependence, cigarettes, uncomplicated | CPT/HCPCS: 99214 ==

== ENCOUNTER 2021-10-24 06:00 | Outpatient (CLI) | payer MEDICARE, OTHER, SELFPAY ==
[2021-10-24 13:29] LABS: Basophils % 0.6 %; Eosinophils # 0.1 10^3/uL (0.0-0.8); Eosinophils % 1.2 %; Hematocrit 48.2 % (42.0-52.0); Hemoglobin 15.9 g/dL (11.7-16.6); Lymphocytes # 0.8 10^3/uL (0.8-4.8); Lymphocytes % 15.5 %; Mean Corpuscular Hemoglobin 32.5 pg (28.0-34.0); Mean Corpuscular Volume 98.6 fl (80-94); Mean Platelet Volume 9.5 fL (7.4-10.4); Monocytes # 0.4 10^3/uL (0.2-0.9); Monocytes % 7.1 %; Neutrophils # 3.92 10^3/uL (1.8-7.7); Neutrophils % 75.2 %; Nucleated Red Blood Cells % 0 %; Platelet Count 155 10^3/cmm (130-400); Red Blood Count 4.89 10^6/uL (4.1-5.3); Red Cell Distribution Width 13.3 % (12.1-15.1); White Blood Count 5.2 10^3/uL (4.0-10.0)
[2021-10-24 13:33] LABS: Erythrocyte Sedimentation Rate < 1 mm/hr (0-10)
[2021-10-24] MEDS: sodium chloride 0.9% 250 ML 75 ML IV (13:37)
[2021-10-24] MEDS: acetaminophen 325 mg Tablet 650 MG PO (13:37)
[2021-10-24] MEDS: diphenhydrAMINE 50 mg/mL SDV 1mL 25 MG IV (13:40)
[2021-10-24 13:53] LABS: Alanine Aminotransferase 126 U/L (0-41); Albumin Level 4.6 g/dL (3.5-5.2); Alkaline Phosphatase 61 IU/L (40-130); Aspartate Amino Transferase 54 U/L (0-40); Glomerular Filtration Rate 113.9 mL/min (90-130); Total Bilirubin 0.4 mg/dL (0.15-1.2); Total Protein 6.6 g/dL (6.6-8.7); Uric Acid 6.5 mg/dL (3.4-7.0)
--- NOTE | 2021-11-05 12:31 | PC.NURSE ---
TOCILIZUMAB END TIME tocilizumab 800mg ended at 1452 on 10/24/21.
== END 2021-10-24 06:01 ==
LOC: ONCMED 11-25 07:18
PROVIDERS: PCP Family Medicine; Referring Provider Internal Medicine Rheumatology; Visit Provider Internal Medicine Rheumatology
DX: M06.9 Rheumatoid arthritis, unspecified (principal); Z79.899 Other long term (current) drug therapy
CPT/HCPCS: 80076; 82565; 84550; 85025; 85651; 96365; 96375; J1200; J2920; J3262; J7050

== ENCOUNTER 2021-11-21 12:40 | Outpatient (CLI) | payer MEDICARE, OTHER, SELFPAY ==
[2021-11-21 12:58] VITALS: BP 138/83; PULSE 73; RESP 18; TEMP 36.5; O2SAT 91
[2021-11-21] MEDS: sodium chloride 0.9% 250 ML 50 ML IV (13:23)
[2021-11-21] MEDS: diphenhydrAMINE 50 mg/mL SDV 1mL 25 MG IVP (13:24)
[2021-11-21] MEDS: acetaminophen 325 mg Tablet 650 MG PO (13:24)
[2021-11-21 14:46] VITALS: BP 132/83; PULSE 61; RESP 18; TEMP 36.5; O2SAT 94
== END 2021-11-21 12:41 | disposition home or self-care (01) ==
LOC: ONCMED 12:43
PROVIDERS: PCP Family Medicine; Visit Provider Internal Medicine Rheumatology
DX: M06.9 Rheumatoid arthritis, unspecified (principal)
CPT/HCPCS: 96365; 96375; J1200; J2920; J3262; J7050

== ENCOUNTER 2021-12-19 12:41 | Outpatient (CLI) | payer MEDICARE, OTHER, SELFPAY ==
[2021-12-19 13:15] VITALS: BP 148/94; PULSE 67; RESP 18; TEMP 36.4; O2SAT 95
[2021-12-19 13:39] LABS: Erythrocyte Sedimentation Rate < 1 mm/hr (0-10)
[2021-12-19] MEDS: acetaminophen 325 mg Tablet 650 MG PO (13:40)
[2021-12-19 13:43] LABS: Basophils # 0.1 10^3/uL (0.0-0.1); Basophils % 0.8 %; Eosinophils # 0.2 10^3/uL (0.0-0.8); Eosinophils % 2.5 %; Hematocrit 47.5 % (42.0-52.0); Hemoglobin 15.9 g/dL (11.7-16.6); Lymphocytes # 1.1 10^3/uL (0.8-4.8); Lymphocytes % 16.9 %; Mean Corpuscular HGB Conc 33.5 g/dL (30.0-36.0); Mean Corpuscular Hemoglobin 32.9 pg (28.0-34.0); Mean Corpuscular Volume 98.1 fl (80-94); Mean Platelet Volume 9.3 fL (7.4-10.4); Monocytes # 0.6 10^3/uL (0.2-0.9); Monocytes % 8.7 %; Neutrophils # 4.44 10^3/uL (1.8-7.7); Neutrophils % 70.3 %; Nucleated Red Blood Cells % 0 %; Platelet Count 142 10^3/cmm (130-400); Red Blood Count 4.84 10^6/uL (4.1-5.3); Red Cell Distribution Width 13.4 % (12.1-15.1); White Blood Count 6.3 10^3/uL (4.0-10.0)
[2021-12-19] MEDS: sodium chloride 0.9% 250 ML 50 ML IV (13:43)
[2021-12-19] MEDS: diphenhydrAMINE 50 mg/mL SDV 1mL 25 MG IV (13:44)
[2021-12-19 13:55] LABS: Alanine Aminotransferase 105 U/L (0-41); Albumin Level 4.7 g/dL (3.5-5.2); Alkaline Phosphatase 59 IU/L (40-130); Aspartate Amino Transferase 52 U/L (0-40); Globulin 2.1 g/dL (1.3-4.6); Glomerular Filtration Rate 97.6 mL/min (90-130); Total Bilirubin 0.3 mg/dL (0.15-1.2); Total Protein 6.8 g/dL (6.6-8.7)
[2021-12-19 15:21] VITALS: BP 144/91; PULSE 58; RESP 18; TEMP 36.5; O2SAT 97
== END 2021-12-19 12:42 | disposition home or self-care (01) ==
LOC: ONCMED 12:44
PROVIDERS: PCP Family Medicine; Visit Provider Internal Medicine Rheumatology
DX: M06.9 Rheumatoid arthritis, unspecified (principal); Z79.899 Other long term (current) drug therapy
CPT/HCPCS: 80076; 82565; 85025; 85651; 96365; 96375; J1200; J2920; J3262; J7050

== ENCOUNTER 2022-01-16 12:47 | Outpatient (CLI) | payer MEDICARE, SELFPAY ==
[2022-01-16 13:29] VITALS: BP 132/70; PULSE 68; RESP 18; TEMP 36.7; O2SAT 95
[2022-01-16] MEDS: sodium chloride 0.9% 250 ML 50 ML IV (13:32)
[2022-01-16] MEDS: acetaminophen 325 mg Tablet 650 MG PO (13:33)
[2022-01-16] MEDS: diphenhydrAMINE 50 mg/mL SDV 1mL 25 MG IV (13:34)
[2022-01-16 15:05] VITALS: BP 127/79; PULSE 59; RESP 18; TEMP 36.4; O2SAT 96
== END 2022-01-16 12:48 | disposition home or self-care (01) ==
PROVIDERS: PCP Family Medicine; Visit Provider Internal Medicine Rheumatology
DX: M06.9 Rheumatoid arthritis, unspecified (principal)
CPT/HCPCS: 96365; 96375; J1200; J2920; J3262; J7050

== ENCOUNTER → 2022-02-12 13:01 | Outpatient (BNVA) | payer MEDICARE, SELFPAY | PROVIDERS: PCP Family Medicine; Visit Provider Internal Medicine Rheumatology | DX: M05.79 Rheumatoid arthritis with rheumatoid factor of multiple sites without organ or systems involvement (principal); M10.9 Gout, unspecified; Z79.899 Other long term (current) drug therapy; M19.90 Unspecified osteoarthritis, unspecified site; M70.40 Prepatellar bursitis, unspecified knee; K76.0 Fatty (change of) liver, not elsewhere classified; Z71.89 Other specified counseling | CPT/HCPCS: 73562; 99214 ==

== ENCOUNTER 2022-02-13 09:50 | Outpatient (CLI) | payer MEDICARE, SELFPAY ==
[2022-02-13 10:14] VITALS: BP 147/89; PULSE 57; RESP 18; TEMP 36.1; O2SAT 96
[2022-02-13 10:28] LABS: Basophils # 0.1 10^3/uL (0.0-0.1); Eosinophils # 0.2 10^3/uL (0.0-0.8); Hematocrit 47.8 % (42.0-52.0); Hemoglobin 16.2 g/dL (11.7-16.6); Lymphocytes % 20.5 %; Mean Corpuscular HGB Conc 33.9 g/dL (30.0-36.0); Mean Corpuscular Hemoglobin 33.1 pg (28.0-34.0); Mean Corpuscular Volume 97.8 fl (80-94); Monocytes # 0.5 10^3/uL (0.2-0.9); Neutrophils # 3.18 10^3/uL (1.8-7.7); Neutrophils % 64.7 %; Nucleated Red Blood Cells % 0 %; Platelet Count 138 10^3/cmm (130-400); Red Blood Count 4.89 10^6/uL (4.1-5.3); Red Cell Distribution Width 13.2 % (12.1-15.1); White Blood Count 4.9 10^3/uL (4.0-10.0)
[2022-02-13] MEDS: acetaminophen 325 mg Tablet 650 MG PO (10:29)
[2022-02-13 10:33] LABS: Erythrocyte Sedimentation Rate 1 mm/hr (0-10)
[2022-02-13] MEDS: sodium chloride 0.9% 250 ML 50 ML IV (10:35)
[2022-02-13] MEDS: diphenhydrAMINE 50 mg/mL SDV 1mL 25 MG IVP (10:37)
[2022-02-13 10:44] LABS: Alanine Aminotransferase 70 U/L (0-41); Albumin Level 4.8 g/dL (3.5-5.2); Alkaline Phosphatase 57 IU/L (40-130); Globulin 2.2 g/dL (1.3-4.6); Glomerular Filtration Rate 113.5 mL/min (90-130); Total Bilirubin 0.4 mg/dL (0.15-1.2)
[2022-02-13 10:46] LABS: Aspartate Amino Transferase 41 U/L (0-40)
[2022-02-13 12:01] VITALS: BP 124/82; PULSE 55; RESP 18; TEMP 36.5; O2SAT 96
== END 2022-02-13 09:51 | disposition home or self-care (01) ==
LOC: ONCMED 09:50
PROVIDERS: PCP Family Medicine; Referring Provider Internal Medicine Rheumatology; Visit Provider Internal Medicine Rheumatology
DX: M06.9 Rheumatoid arthritis, unspecified (principal); Z79.899 Other long term (current) drug therapy
CPT/HCPCS: 80076; 82565; 85025; 85651; 96365; 96375; J1200; J2920; J3262; J7050

== ENCOUNTER 2022-03-13 09:11 | Outpatient (CLI) | payer MEDICARE, SELFPAY ==
[2022-03-13 09:21] VITALS: BP 158/97; PULSE 51; RESP 18; TEMP 36.2; O2SAT 98
[2022-03-13] MEDS: sodium chloride 0.9% 250 ML 50 ML IV (09:50)
[2022-03-13] MEDS: acetaminophen 325 mg Tablet 650 MG PO (09:52)
[2022-03-13] MEDS: diphenhydrAMINE 50 mg/mL SDV 1mL 25 MG IVP (09:53)
[2022-03-13 11:14] VITALS: BP 139/87; PULSE 54; RESP 18; TEMP 36.3; O2SAT 99
== END 2022-03-13 09:12 | disposition home or self-care (01) ==
LOC: ONCMED 09:11
PROVIDERS: PCP Family Medicine; Referring Provider Internal Medicine Rheumatology; Visit Provider Internal Medicine Rheumatology
DX: M06.9 Rheumatoid arthritis, unspecified (principal)
CPT/HCPCS: 96365; 96375; J1200; J2920; J3262; J7050

== ENCOUNTER 2022-04-10 08:39 | Outpatient (CLI) | payer MEDICARE, SELFPAY ==
[2022-04-10 09:05] VITALS: BP 131/86; PULSE 58; RESP 18; TEMP 36.4; O2SAT 97
[2022-04-10] MEDS: sodium chloride 0.9% 250 ML 75 ML IV (09:19)
[2022-04-10] MEDS: acetaminophen 325 mg Tablet 650 MG PO (09:20)
[2022-04-10] MEDS: diphenhydrAMINE 50 mg/mL SDV 1mL 25 MG IVP (09:22)
[2022-04-10 09:24] LABS: Eosinophils # 0.2 10^3/uL (0.0-0.8); Lymphocytes # 1.7 10^3/uL (0.8-4.8); Monocytes # 0.6 10^3/uL (0.2-0.9); Nucleated Red Blood Cells % 0 %
[2022-04-10 09:26] LABS: Hematocrit 48.4 % (42.0-52.0); Hemoglobin 15.9 g/dL (11.7-16.6); Red Blood Count 4.83 10^6/uL (4.1-5.3)
[2022-04-10 09:27] LABS: Basophils % 0.6 %; Eosinophils % 4.2 %; Lymphocytes % 34.9 %; Mean Corpuscular HGB Conc 32.9 g/dL (30.0-36.0); Mean Corpuscular Hemoglobin 32.9 pg (28.0-34.0); Mean Corpuscular Volume 100.2 fl (80-94); Mean Platelet Volume 9.9 fL (7.4-10.4); Neutrophils # 2.41 10^3/uL (1.8-7.7); Neutrophils % 48.5 %; Platelet Count 131 10^3/cmm (130-400); Red Cell Distribution Width 13.6 % (12.1-15.1)
[2022-04-10 09:31] LABS: Erythrocyte Sedimentation Rate < 1 mm/hr (0-10)
[2022-04-10 09:37] LABS: Alanine Aminotransferase 75 U/L (0-41); Albumin Level 4.5 g/dL (3.5-5.2); Alkaline Phosphatase 53 IU/L (40-130); Aspartate Amino Transferase 45 U/L (0-40); Globulin 2.1 g/dL (1.3-4.6); Glomerular Filtration Rate 97.3 mL/min (90-130); Total Bilirubin 0.5 mg/dL (0.15-1.2); Total Protein 6.6 g/dL (6.6-8.7)
[2022-04-10 11:00] VITALS: BP 118/77; PULSE 58; RESP 18; TEMP 36.2; O2SAT 99
== END 2022-04-10 08:40 | disposition home or self-care (01) ==
PROVIDERS: PCP Family Medicine; Referring Provider Internal Medicine Rheumatology; Visit Provider Internal Medicine Rheumatology
DX: M06.9 Rheumatoid arthritis, unspecified (principal); Z79.899 Other long term (current) drug therapy
CPT/HCPCS: 80076; 82565; 85025; 85651; 96365; 96375; J1200; J2920; J3262; J7050

== ENCOUNTER 2022-05-08 08:57 | Outpatient (CLI) | payer MEDICARE, SELFPAY ==
[2022-05-08 09:10] VITALS: BP 148/93; PULSE 63; RESP 18; TEMP 36.3; O2SAT 97
[2022-05-08] MEDS: sodium chloride 0.9% 250 ML 50 ML IV (09:39)
[2022-05-08] MEDS: acetaminophen 325 mg Tablet 650 MG PO (09:39)
[2022-05-08] MEDS: diphenhydrAMINE 50 mg/mL SDV 1mL 25 MG IV (09:41)
[2022-05-08 11:44] VITALS: BP 124/88; PULSE 53; RESP 18; TEMP 36.4; O2SAT 98
== END 2022-05-08 08:58 | disposition home or self-care (01) ==
PROVIDERS: PCP Family Medicine; Referring Provider Internal Medicine Rheumatology; Visit Provider Internal Medicine Rheumatology
DX: M06.9 Rheumatoid arthritis, unspecified (principal)
CPT/HCPCS: 96365; 96375; J1200; J2920; J3262; J7050

== ENCOUNTER 2022-06-05 09:05 | Outpatient (CLI) | payer MEDICARE, SELFPAY ==
[2022-06-05 09:22] VITALS: BP 137/87; PULSE 71; RESP 18; TEMP 36.3; O2SAT 92
[2022-06-05 09:42] LABS: Basophils % 0.8 %; Eosinophils # 0.2 10^3/uL (0.0-0.8); Eosinophils % 3.1 %; Hematocrit 48.1 % (42.0-52.0); Hemoglobin 16.3 g/dL (11.7-16.6); Lymphocytes # 1.2 10^3/uL (0.8-4.8); Lymphocytes % 25.4 %; Mean Corpuscular HGB Conc 33.9 g/dL (30.0-36.0); Mean Corpuscular Hemoglobin 32.9 pg (28.0-34.0); Mean Platelet Volume 9.6 fL (7.4-10.4); Monocytes # 0.5 10^3/uL (0.2-0.9); Neutrophils # 2.91 10^3/uL (1.8-7.7); Neutrophils % 59.7 %; Nucleated Red Blood Cells % 0 %; Platelet Count 134 10^3/cmm (130-400); Red Blood Count 4.96 10^6/uL (4.1-5.3); Red Cell Distribution Width 13.1 % (12.1-15.1); White Blood Count 4.9 10^3/uL (4.0-10.0)
[2022-06-05] MEDS: sodium chloride 0.9% 250 ML 50 ML IV (09:43)
[2022-06-05 09:45] LABS: Erythrocyte Sedimentation Rate < 1 mm/hr (0-10)
[2022-06-05] MEDS: acetaminophen 325 mg Tablet 650 MG PO (09:45)
[2022-06-05] MEDS: diphenhydrAMINE 50 mg/mL SDV 1mL 25 MG IVP (09:46)
[2022-06-05 10:01] LABS: Alanine Aminotransferase 100 U/L (0-41); Albumin Level 4.6 g/dL (3.5-5.2); Alkaline Phosphatase 63 U/L (40-130); Aspartate Amino Transferase 51 U/L (0-40); Glomerular Filtration Rate 97.3 mL/min (90-130); Total Bilirubin 0.3 mg/dL (0.15-1.2); Total Protein 6.6 g/dL (6.6-8.7)
[2022-06-05 11:22] VITALS: BP 128/84; PULSE 59; RESP 18; TEMP 36.2; O2SAT 99
== END 2022-06-05 09:06 | disposition home or self-care (01) ==
PROVIDERS: PCP Family Medicine; Visit Provider Internal Medicine Rheumatology
DX: M06.9 Rheumatoid arthritis, unspecified (principal); Z79.899 Other long term (current) drug therapy
CPT/HCPCS: 80076; 82565; 85025; 85651; 96365; 96375; J1200; J2920; J3262; J7050

== ENCOUNTER → 2022-06-12 13:23 | Outpatient (BNVA) | payer MEDICARE, SELFPAY | PROVIDERS: PCP Family Medicine; Visit Provider Internal Medicine Rheumatology | DX: M05.79 Rheumatoid arthritis with rheumatoid factor of multiple sites without organ or systems involvement (principal); Z79.899 Other long term (current) drug therapy; M10.9 Gout, unspecified; Z71.89 Other specified counseling; M19.90 Unspecified osteoarthritis, unspecified site; K76.0 Fatty (change of) liver, not elsewhere classified; M70.40 Prepatellar bursitis, unspecified knee; Y93.9 Activity, unspecified | CPT/HCPCS: 99214 ==

== ENCOUNTER 2022-07-10 09:39 | Outpatient (CLI) | payer MEDICARE, SELFPAY ==
[2022-07-10 09:50] VITALS: BP 134/93; PULSE 66; RESP 18; TEMP 36; O2SAT 97
[2022-07-10] MEDS: sodium chloride 0.9% 250 ML 50 ML IV (10:17)
[2022-07-10] MEDS: acetaminophen 325 mg Tablet 650 MG PO (10:18)
[2022-07-10] MEDS: diphenhydrAMINE 50 mg/mL SDV 1mL 25 MG IVP (10:20)
[2022-07-10 12:08] VITALS: BP 121/79; PULSE 57; RESP 18; TEMP 36.3; O2SAT 98
== END 2022-07-10 09:40 | disposition home or self-care (01) ==
PROVIDERS: PCP Family Medicine; Visit Provider Internal Medicine Rheumatology
DX: M06.9 Rheumatoid arthritis, unspecified (principal)
CPT/HCPCS: 96365; 96375; J1200; J2920; J3262; J7050

== ENCOUNTER 2022-08-07 09:39 | Outpatient (CLI) | payer MEDICARE, SELFPAY ==
[2022-08-07 09:56] VITALS: BP 143/93; PULSE 62; RESP 18; TEMP 36.3; O2SAT 97
[2022-08-07 10:19] LABS: Basophils % 0.6 %; Eosinophils # 0.2 10^3/uL (0.0-0.8); Eosinophils % 3.2 %; Hematocrit 49.5 % (42.0-52.0); Hemoglobin 16.2 g/dL (11.7-16.6); Lymphocytes # 1.4 10^3/uL (0.8-4.8); Lymphocytes % 28.9 %; Mean Corpuscular HGB Conc 32.7 g/dL (30.0-36.0); Mean Corpuscular Hemoglobin 32.4 pg (28.0-34.0); Mean Platelet Volume 9.1 fL (7.4-10.4); Monocytes # 0.5 10^3/uL (0.2-0.9); Neutrophils # 2.62 10^3/uL (1.8-7.7); Neutrophils % 55.7 %; Nucleated Red Blood Cells % 0 %; Platelet Count 155 10^3/cmm (130-400); Red Cell Distribution Width 13.5 % (12.1-15.1); White Blood Count 4.7 10^3/uL (4.0-10.0)
[2022-08-07 10:21] LABS: Erythrocyte Sedimentation Rate < 1 mm/hr (0-10)
[2022-08-07] MEDS: sodium chloride 0.9% 250 ML 50 ML IV (10:30)
[2022-08-07] MEDS: acetaminophen 325 mg Tablet 650 MG PO (10:32)
[2022-08-07] MEDS: diphenhydrAMINE 50 mg/mL SDV 1mL 25 MG IVP (10:33)
[2022-08-07 10:34] LABS: Alanine Aminotransferase 82 U/L (0-41); Albumin Level 4.9 g/dL (3.5-5.2); Alkaline Phosphatase 62 U/L (40-130); Aspartate Amino Transferase 41 U/L (0-40); Globulin 1.8 g/dL (1.3-4.6); Total Bilirubin 0.4 mg/dL (0.15-1.2); Total Protein 6.7 g/dL (6.6-8.7)
[2022-08-07 12:17] VITALS: BP 120/82; PULSE 57; RESP 18; TEMP 36.4; O2SAT 97
== END 2022-08-07 09:40 | disposition home or self-care (01) ==
PROVIDERS: PCP Family Medicine; Visit Provider Internal Medicine Rheumatology
DX: M06.9 Rheumatoid arthritis, unspecified (principal)
CPT/HCPCS: 80076; 82565; 85025; 85651; 96365; 96375; J1200; J2920; J3262; J7050

== ENCOUNTER 2022-09-03 10:41 | Outpatient (CLI) | payer MEDICARE, SELFPAY ==
[2022-09-03 10:55] VITALS: BP 154/97; PULSE 54; RESP 18; TEMP 36.1; O2SAT 100
[2022-09-03] MEDS: sodium chloride 0.9% 250 ML 50 ML IV (11:18)
[2022-09-03] MEDS: acetaminophen 325 mg Tablet 650 MG PO (11:19)
[2022-09-03] MEDS: diphenhydrAMINE 50 mg/mL SDV 1mL 25 MG IVP (11:20)
[2022-09-03 12:56] VITALS: BP 140/85; PULSE 54; RESP 18; TEMP 36.5; O2SAT 95
== END 2022-09-03 10:42 | disposition home or self-care (01) ==
PROVIDERS: PCP Family Medicine; Referring Provider Internal Medicine Rheumatology; Visit Provider Internal Medicine Rheumatology
DX: M06.9 Rheumatoid arthritis, unspecified (principal)
CPT/HCPCS: 96365; 96375; J1200; J2920; J3262; J7050

== ENCOUNTER 2022-10-01 08:37 | Outpatient (CLI) | payer MEDICARE, SELFPAY ==
[2022-10-01 08:55] VITALS: BP 144/87; PULSE 59; RESP 18; TEMP 36.3; O2SAT 96
[2022-10-01] MEDS: acetaminophen 325 mg Tablet 650 MG PO (09:35)
[2022-10-01] MEDS: sodium chloride 0.9% 250 ML 50 ML IV (09:35)
[2022-10-01] MEDS: diphenhydrAMINE 50 mg/mL SDV 1mL 25 MG IVP (09:37)
[2022-10-01 11:07] VITALS: BP 133/83; PULSE 55; RESP 18; TEMP 36.4; O2SAT 96
== END 2022-10-01 08:38 | disposition home or self-care (01) ==
LOC: ONCMED 08:37
PROVIDERS: PCP Family Medicine; Visit Provider Internal Medicine Rheumatology
DX: M06.9 Rheumatoid arthritis, unspecified (principal)
CPT/HCPCS: 96365; 96375; J1200; J2930; J3262; J7050

== ENCOUNTER 2022-11-12 08:39 | Outpatient (CLI) | payer MEDICARE, OTHER, SELFPAY ==
[2022-11-12 08:56] VITALS: BP 137/88; PULSE 60; RESP 18; TEMP 36.2; O2SAT 97
[2022-11-12] MEDS: acetaminophen 325 mg Tablet 650 MG PO (09:19)
[2022-11-12] MEDS: sodium chloride 0.9% 250 ML 50 ML IV (09:19)
[2022-11-12] MEDS: diphenhydrAMINE 50 mg/mL SDV 1mL 25 MG IVP (09:21)
[2022-11-12 09:22] LABS: Basophils % 0.7 %; Eosinophils # 0.2 10^3/uL (0.0-0.8); Eosinophils % 3.1 %; Hematocrit 48.9 % (42.0-52.0); Lymphocytes # 1.3 10^3/uL (0.8-4.8); Lymphocytes % 24.7 %; Mean Corpuscular HGB Conc 32.7 g/dL (30.0-36.0); Mean Corpuscular Hemoglobin 32.3 pg (28.0-34.0); Mean Corpuscular Volume 98.8 fl (80-94); Mean Platelet Volume 9.6 fL (7.4-10.4); Monocytes # 0.6 10^3/uL (0.2-0.9); Monocytes % 10.3 %; Neutrophils # 3.27 10^3/uL (1.8-7.7); Neutrophils % 60.5 %; Nucleated Red Blood Cells % 0 %; Platelet Count 147 10^3/cmm (130-400); Red Blood Count 4.95 10^6/uL (4.1-5.3); Red Cell Distribution Width 13.3 % (12.1-15.1); White Blood Count 5.4 10^3/uL (4.0-10.0)
[2022-11-12 09:27] LABS: Erythrocyte Sedimentation Rate < 1 mm/hr (0-10)
[2022-11-12 09:45] LABS: Alanine Aminotransferase 93 U/L (0-41); Albumin Level 4.2 g/dL (3.5-5.2); Alkaline Phosphatase 58 U/L (40-130); Aspartate Amino Transferase 47 U/L (0-40); Globulin 1.8 g/dL (1.3-4.6); Total Bilirubin 0.4 mg/dL (0.15-1.2)
[2022-11-12 11:16] VITALS: BP 112/75; PULSE 55; RESP 18; TEMP 36.6; O2SAT 96
== END 2022-11-12 08:40 | disposition home or self-care (01) ==
LOC: ONCMED 08:40
PROVIDERS: PCP Family Medicine; Visit Provider Internal Medicine Rheumatology
DX: M06.9 Rheumatoid arthritis, unspecified (principal); Z79.899 Other long term (current) drug therapy
CPT/HCPCS: 80076; 82565; 85025; 85651; 96365; 96375; J1200; J2920; J3262; J7050

== ENCOUNTER → 2022-11-25 09:20 | Outpatient (BNVA) | payer MEDICARE, SELFPAY | PROVIDERS: PCP Family Medicine; Visit Provider Internal Medicine Rheumatology | DX: M05.79 Rheumatoid arthritis with rheumatoid factor of multiple sites without organ or systems involvement (principal); M10.9 Gout, unspecified; Z79.899 Other long term (current) drug therapy; Z71.89 Other specified counseling | CPT/HCPCS: 73562; 99214 ==

== ENCOUNTER 2022-12-08 08:43 | Oncology outpatient (recurring) (ONCR) | payer MEDICARE, OTHER, SELFPAY ==
[2022-12-08 09:20] VITALS: BMI 35.4
[2022-12-08 09:33] LABS: Basophils % 0.8 %; Eosinophils # 0.2 10^3/uL (0.0-0.8); Eosinophils % 3.4 %; Hematocrit 46.7 % (42.0-52.0); Hemoglobin 15.5 g/dL (11.7-16.6); Lymphocytes # 1.5 10^3/uL (0.8-4.8); Lymphocytes % 28.8 %; Mean Corpuscular HGB Conc 33.2 g/dL (30.0-36.0); Mean Corpuscular Hemoglobin 32.5 pg (28.0-34.0); Mean Corpuscular Volume 97.9 fl (80-94); Mean Platelet Volume 9.6 fL (7.4-10.4); Monocytes # 0.6 10^3/uL (0.2-0.9); Monocytes % 11.7 %; Neutrophils # 2.75 10^3/uL (1.8-7.7); Neutrophils % 54.5 %; Nucleated Red Blood Cells % 0 %; Platelet Count 147 10^3/cmm (130-400); Red Blood Count 4.77 10^6/uL (4.1-5.3); Red Cell Distribution Width 13.3 % (12.1-15.1)
[2022-12-08] MEDS: sodium chloride 0.9% 250 ML 75 ML IV (09:42)
[2022-12-08] MEDS: acetaminophen 325 mg Tablet 650 MG PO (09:46)
[2022-12-08] MEDS: diphenhydrAMINE 50 mg/mL SDV 1mL 25 MG IVP (09:47)
[2022-12-08 09:48] LABS: Alanine Aminotransferase 74 U/L (0-41); Albumin Level 4.2 g/dL (3.5-5.2); Alkaline Phosphatase 52 U/L (40-130); Anion Gap 13.6 (5-19); Aspartate Amino Transferase 39 U/L (0-40); Blood Urea Nitrogen 16 mg/dL (8-23); Carbon Dioxide 28 mmol/L (22-29); Chloride 101 mmol/L (98-107); Glomerular Filtration Rate 97.3 mL/min (90-130); Glucose 89 mg/dL (65-115); Osmolality Calculated 287 mOsm/kg (285-295); Potassium 4.6 mmol/L (3.5-5.1); Sodium 138 mmol/L (136-145); Total Bilirubin 0.4 mg/dL (0.15-1.2); Total Protein 6.2 g/dL (6.6-8.7)
[2022-12-08 10:00] VITALS: BP 128/82; PULSE 56; RESP 16; TEMP 36.4; O2SAT 97
[2022-12-08] MEDS: tocilizumab 800 MG in sodium chloride 0.9% (100 ml) 100 ML 140 MG IV (10:13)
[2022-12-08 11:33] VITALS: BP 127/78; PULSE 56; RESP 16; TEMP 36.4; O2SAT 97
== END 2023-01-02 23:59 | disposition home or self-care (01) ==
PROVIDERS: PCP Family Medicine; Visit Provider Internal Medicine Rheumatology
DX: M05.79 Rheumatoid arthritis with rheumatoid factor of multiple sites without organ or systems involvement (principal); Z79.899 Other long term (current) drug therapy
CPT/HCPCS: 80053; 85025; 86140; 96361; 96365; 96367; 96375; 96413; 96415; J1200; J2920; J3262; J7050

== ENCOUNTER 2023-01-05 08:44 | Oncology outpatient (recurring) (ONCR) | payer MEDICARE, SELFPAY ==
[2023-01-05 08:59] VITALS: BP 117/77; PULSE 64; RESP 18; TEMP 36.8; O2SAT 93
[2023-01-05 09:21] LABS: Basophils # 0.1 10^3/uL (0.0-0.1); Basophils % 1.1 %; Eosinophils # 0.2 10^3/uL (0.0-0.8); Eosinophils % 4.2 %; Hematocrit 47.5 % (42.0-52.0); Hemoglobin 15.9 g/dL (11.7-16.6); Lymphocytes # 1.4 10^3/uL (0.8-4.8); Lymphocytes % 30.2 %; Mean Corpuscular HGB Conc 33.5 g/dL (30.0-36.0); Mean Corpuscular Hemoglobin 32.1 pg (28.0-34.0); Mean Platelet Volume 9.2 fL (7.4-10.4); Monocytes # 0.6 10^3/uL (0.2-0.9); Monocytes % 12.7 %; Neutrophils # 2.31 10^3/uL (1.8-7.7); Neutrophils % 51.4 %; Nucleated Red Blood Cells % 0 %; Platelet Count 141 10^3/cmm (130-400); Red Blood Count 4.95 10^6/uL (4.1-5.3); Red Cell Distribution Width 13.2 % (12.1-15.1); White Blood Count 4.5 10^3/uL (4.0-10.0)
[2023-01-05] MEDS: sodium chloride 0.9% 250 ML 75 ML IV (09:23)
[2023-01-05] MEDS: diphenhydrAMINE 50 mg/mL SDV 1mL 25 MG IVP (09:24)
[2023-01-05] MEDS: acetaminophen 325 mg Tablet 650 MG PO (09:26)
[2023-01-05 09:37] LABS: Alanine Aminotransferase 54 U/L (0-41); Albumin Level 4.6 g/dL (3.5-5.2); Alkaline Phosphatase 51 U/L (40-130); Globulin 1.9 g/dL (1.3-4.6); Total Bilirubin 0.3 mg/dL (0.15-1.2); Total Protein 6.5 g/dL (6.6-8.7)
[2023-01-05] MEDS: tocilizumab 800 MG in sodium chloride 0.9% (100 ml) 100 ML 140 MG IV (09:40)
[2023-01-05 09:50] LABS: Aspartate Amino Transferase 40 U/L (0-40)
[2023-01-05 10:01] LABS: Erythrocyte Sedimentation Rate < 1 mm/hr (0-10)
[2023-01-05 10:55] VITALS: BP 112/70; PULSE 58; RESP 18; TEMP 36.7; O2SAT 95
== END 2023-02-01 23:59 | disposition home or self-care (01) ==
PROVIDERS: PCP Family Medicine; Visit Provider Internal Medicine Rheumatology
DX: M05.79 Rheumatoid arthritis with rheumatoid factor of multiple sites without organ or systems involvement (principal); Z79.899 Other long term (current) drug therapy
CPT/HCPCS: 80076; 82565; 85025; 85651; 96365; 96375; J1200; J2920; J3262; J7050

== ENCOUNTER 2023-02-02 08:53 | Oncology outpatient (recurring) (ONCR) | payer MEDICARE, SELFPAY ==
[2023-02-02] MEDS: acetaminophen 325 mg Tablet 650 MG PO (10:09)
[2023-02-02] MEDS: diphenhydrAMINE 50 mg/mL SDV 1mL 25 MG IVP (10:09)
[2023-02-02] MEDS: sodium chloride 0.9% 250 ML 75 ML IV (10:09)
[2023-02-02] MEDS: SODIUM CHLORIDE 0.9% IV (10:39)
[2023-02-02] MEDS: TOCILIZUMAB IV (10:39)
[2023-02-02 12:00] VITALS: BP 122/74; PULSE 80; RESP 16; TEMP 36.8; O2SAT 96
== END 2023-03-04 23:59 | disposition home or self-care (01) ==
PROVIDERS: PCP Family Medicine; Visit Provider Internal Medicine Rheumatology
DX: M05.9 Rheumatoid arthritis with rheumatoid factor, unspecified
CPT/HCPCS: 96375; 96413; J1200; J2920; J3262; J7050

== ENCOUNTER → 2023-02-04 09:24 | Outpatient (BNVA) | payer MEDICARE, SELFPAY | PROVIDERS: PCP Family Medicine; Visit Provider Internal Medicine Cardiovascular Disease | DX: Z79.899 Other long term (current) drug therapy (principal); R00.1 Bradycardia, unspecified; I44.0 Atrioventricular block, first degree; I47.1 Supraventricular tachycardia | CPT/HCPCS: 93225 ==

== ENCOUNTER → 2023-02-10 09:27 | Outpatient (BNVA) | payer MEDICARE, SELFPAY | PROVIDERS: PCP Family Medicine; Visit Provider Internal Medicine Rheumatology | DX: M05.79 Rheumatoid arthritis with rheumatoid factor of multiple sites without organ or systems involvement (principal); M10.9 Gout, unspecified; Z79.899 Other long term (current) drug therapy; Z71.89 Other specified counseling | CPT/HCPCS: 99214 ==

== ENCOUNTER 2023-03-18 08:26 | Oncology outpatient (recurring) (ONCR) | payer MEDICARE, SELFPAY ==
[2023-03-18 08:47] VITALS: BMI 31.6
[2023-03-18 08:50] VITALS: BP 104/68; PULSE 58; RESP 18; TEMP 36.4; O2SAT 99
[2023-03-18 08:55] LABS: Basophils % 0.9 %; Eosinophils # 0.2 10^3/uL (0.0-0.8); Eosinophils % 4.8 %; Hematocrit 49.8 % (42.0-52.0); Hemoglobin 16.4 g/dL (11.7-16.6); Lymphocytes # 1.3 10^3/uL (0.8-4.8); Lymphocytes % 27.9 %; Mean Corpuscular HGB Conc 32.9 g/dL (30.0-36.0); Mean Corpuscular Volume 97.1 fl (80-94); Mean Platelet Volume 9.6 fL (7.4-10.4); Monocytes # 0.5 10^3/uL (0.2-0.9); Monocytes % 11.6 %; Neutrophils # 2.47 10^3/uL (1.8-7.7); Neutrophils % 54.4 %; Nucleated Red Blood Cells % 0 %; Platelet Count 142 10^3/cmm (130-400); Red Blood Count 5.13 10^6/uL (4.1-5.3); Red Cell Distribution Width 12.7 % (12.1-15.1); White Blood Count 4.6 10^3/uL (4.0-10.0)
[2023-03-18 09:07] LABS: Erythrocyte Sedimentation Rate < 1 mm/hr (0-10)
[2023-03-18 09:21] LABS: Alanine Aminotransferase 40 U/L (0-41); Albumin Level 4.5 g/dL (3.5-5.2); Alkaline Phosphatase 56 U/L (40-130); Aspartate Amino Transferase 28 U/L (0-40); Globulin 1.9 g/dL (1.3-4.6); Glomerular Filtration Rate 113.2 mL/min (90-130); Total Bilirubin 0.3 mg/dL (0.15-1.2); Total Protein 6.4 g/dL (6.6-8.7)
[2023-03-18] MEDS: acetaminophen 325 mg Tablet 650 MG PO (09:24)
[2023-03-18] MEDS: sodium chloride 0.9% 250 ML 75 ML IV (09:25)
[2023-03-18] MEDS: diphenhydrAMINE 50 mg/mL SDV 1mL 25 MG IVP (09:28)
[2023-03-18] MEDS: dexamethasone 10 mg/mL INJ 6 MG IV (09:38)
[2023-03-18] MEDS: tocilizumab 800 MG in sodium chloride 0.9% (100 ml) 100 ML 140 MG IV (09:50)
[2023-03-18 11:12] VITALS: BP 106/75; PULSE 58; RESP 18; TEMP 37; O2SAT 99
== END 2023-04-03 23:59 | disposition home or self-care (01) ==
PROVIDERS: PCP Family Medicine; Visit Provider Internal Medicine Rheumatology
DX: M05.9 Rheumatoid arthritis with rheumatoid factor, unspecified (principal)
CPT/HCPCS: 80076; 82565; 85025; 85651; 96365; 96375; J1100; J1200; J3262; J7050

== ENCOUNTER 2023-04-15 08:19 | Oncology outpatient (recurring) (ONCR) | payer MEDICARE, SELFPAY ==
[2023-04-15] MEDS: sodium chloride 0.9% 250 ML 75 ML IV (09:00)
[2023-04-15] MEDS: acetaminophen 325 mg Tablet 650 MG PO (09:01)
[2023-04-15] MEDS: dexamethasone 10 mg/mL INJ 6 MG IVP (09:04)
[2023-04-15] MEDS: diphenhydrAMINE 50 mg/mL SDV 1mL 25 MG IVP (09:13)
[2023-04-15] MEDS: tocilizumab 800 MG in sodium chloride 0.9% (100 ml) 100 ML 140 MG IV (09:31)
[2023-04-15 09:41] VITALS: BP 116/74; PULSE 57; RESP 18; TEMP 36.4; O2SAT 96
[2023-04-15 10:45] VITALS: BP 120/78; PULSE 72; RESP 18; TEMP 36.6; O2SAT 98
== END 2023-05-04 23:59 | disposition home or self-care (01) ==
PROVIDERS: PCP Family Medicine; Visit Provider Internal Medicine Rheumatology
DX: M05.9 Rheumatoid arthritis with rheumatoid factor, unspecified (principal)
CPT/HCPCS: 96375; 96413; J1100; J1200; J3262; J7050

== ENCOUNTER 2023-05-13 08:14 | Oncology outpatient (recurring) (ONCR) | payer MEDICARE, SELFPAY ==
[2023-05-13] MEDS: sodium chloride 0.9% 250 ML 100 ML IV (09:21)
[2023-05-13] MEDS: acetaminophen 325 mg Tablet 650 MG PO (09:21)
[2023-05-13] MEDS: diphenhydrAMINE 50 mg/mL SDV 1mL 25 MG IVP (09:22)
[2023-05-13] MEDS: methylPREDNISolone sod succ 40 mg SDV IVP (09:25)
[2023-05-13] MEDS: tocilizumab 800 MG in sodium chloride 0.9% (100 ml) 100 ML 140 MG IV (09:49)
[2023-05-13 11:34] VITALS: BP 133/79; PULSE 55; TEMP 37.3; O2SAT 97
== END 2023-06-04 23:59 | disposition home or self-care (01) ==
PROVIDERS: PCP Family Medicine; Visit Provider Internal Medicine Rheumatology
DX: M05.9 Rheumatoid arthritis with rheumatoid factor, unspecified (principal); Z79.899 Other long term (current) drug therapy
CPT/HCPCS: 96375; 96413; J1200; J2920; J3262; J7050

== ENCOUNTER → 2023-06-09 09:36 | Outpatient (BNVA) | payer MEDICARE, SELFPAY | PROVIDERS: PCP Family Medicine; Visit Provider Internal Medicine Rheumatology | DX: M05.79 Rheumatoid arthritis with rheumatoid factor of multiple sites without organ or systems involvement (principal); M10.9 Gout, unspecified; Z79.899 Other long term (current) drug therapy; Z71.89 Other specified counseling | CPT/HCPCS: 99214 ==

== ENCOUNTER 2023-06-10 08:19 | Oncology outpatient (recurring) (ONCR) | payer MEDICARE, SELFPAY ==
[2023-06-10 08:45] VITALS: BP 110/65; PULSE 56; RESP 16; TEMP 36.3; O2SAT 96; BMI 31.0
[2023-06-10] MEDS: acetaminophen 325 mg Tablet 650 MG PO (09:28)
[2023-06-10] MEDS: sodium chloride 0.9% 250 ML 75 ML IV (09:29)
[2023-06-10 09:30] LABS: Basophils % 0.7 %; Eosinophils # 0.1 10^3/uL (0.0-0.8); Eosinophils % 3.1 %; Hematocrit 44.8 % (37-53); Lymphocytes # 1.1 10^3/uL (0.8-4.8); Lymphocytes % 27.6 %; Mean Corpuscular HGB Conc 33.9 g/dL (30-55); Mean Corpuscular Hemoglobin 31.9 pg (27-33); Mean Corpuscular Volume 94.1 fl (82-101); Mean Platelet Volume 9.5 fL (7.4-10.4); Monocytes # 0.5 10^3/uL (0.2-0.9); Monocytes % 12.6 %; Neutrophils # 2.29 10^3/uL (1.8-7.7); Neutrophils % 55.5 %; Nucleated Red Blood Cells % 0 %; Platelet Count 140 10^3/cmm (157-399); Red Blood Count 4.76 10^6/uL (3.85-5.65); Red Cell Distribution Width 13.1 % (12.1-15.1); White Blood Count 4.13 10^3/uL (3.29-11.43)
[2023-06-10] MEDS: diphenhydrAMINE 50 mg/mL SDV 1mL 25 MG IVP (09:32)
[2023-06-10] MEDS: methylPREDNISolone sod succ 40 mg SDV IVP (09:33)
[2023-06-10 09:45] LABS: Alanine Aminotransferase 28 U/L (0-41); Albumin Level 4.2 g/dL (3.5-5.2); Alkaline Phosphatase 60 U/L (40-130); Aspartate Amino Transferase 26 U/L (0-40); Globulin 1.8 g/dL (1.3-4.6); Glomerular Filtration Rate 113.2 mL/min (90-130); Total Bilirubin 0.4 mg/dL (0.15-1.2)
[2023-06-10] MEDS: tocilizumab 800 MG in sodium chloride 0.9% (100 ml) 100 ML 140 MG IV (10:18)
[2023-06-10 11:25] VITALS: BP 99/65; PULSE 55; RESP 18; TEMP 36.2; O2SAT 96
== END 2023-07-04 23:59 | disposition home or self-care (01) ==
PROVIDERS: PCP Family Medicine; Visit Provider Internal Medicine Rheumatology
DX: M05.9 Rheumatoid arthritis with rheumatoid factor, unspecified (principal)
CPT/HCPCS: 80076; 82565; 85025; 96375; 96413; J1200; J2920; J3262; J7050

== ENCOUNTER 2023-07-08 08:21 | Oncology outpatient (recurring) (ONCR) | payer MEDICARE, SELFPAY ==
[2023-07-08 08:40] VITALS: BP 122/74; PULSE 73; RESP 16; TEMP 36.5; O2SAT 97; BMI 31.5
[2023-07-08] MEDS: acetaminophen 325 mg Tablet 650 MG PO (09:13)
[2023-07-08] MEDS: sodium chloride 0.9% 250 ML 75 ML IV (09:14)
[2023-07-08] MEDS: diphenhydrAMINE 50 mg/mL SDV 1mL 25 MG IVP (09:16)
[2023-07-08] MEDS: methylPREDNISolone sod succ 40 mg SDV IVP (09:18)
[2023-07-08] MEDS: tocilizumab 800 MG in sodium chloride 0.9% (100 ml) 100 ML 140 MG IV (09:47)
[2023-07-08 11:00] VITALS: BP 108/69; PULSE 56; RESP 18; TEMP 36; O2SAT 98
== END 2023-08-04 23:59 | disposition home or self-care (01) ==
PROVIDERS: PCP Family Medicine; Visit Provider Internal Medicine Rheumatology
DX: M05.9 Rheumatoid arthritis with rheumatoid factor, unspecified (principal)
CPT/HCPCS: 96375; 96413; J1200; J2920; J3262; J7050

== ENCOUNTER 2023-08-19 12:42 | Oncology outpatient (recurring) (ONCR) | payer MEDICARE, SELFPAY ==
[2023-08-19 13:24] VITALS: BP 124/68; PULSE 63; RESP 17; TEMP 36.9; O2SAT 96
[2023-08-19 13:25] LABS: Basophils % 0.6 %; Eosinophils # 0.2 10^3/uL (0.0-0.8); Eosinophils % 2.5 %; Hematocrit 47.8 % (37-53); Lymphocytes # 1.1 10^3/uL (0.8-4.8); Mean Corpuscular HGB Conc 34.5 g/dL (30-55); Mean Corpuscular Hemoglobin 32.4 pg (27-33); Mean Corpuscular Volume 93.7 fl (82-101); Mean Platelet Volume 9.3 fL (7.4-10.4); Monocytes # 0.4 10^3/uL (0.2-0.9); Monocytes % 6.8 %; Neutrophils # 4.58 10^3/uL (1.8-7.7); Neutrophils % 72.2 %; Nucleated Red Blood Cells % 0 %; Platelet Count 145 10^3/cmm (157-399); White Blood Count 6.35 10^3/uL (3.29-11.43)
[2023-08-19] MEDS: acetaminophen 325 mg Tablet 650 MG PO (13:29)
[2023-08-19] MEDS: sodium chloride 0.9% 250 ML 75 ML IV (13:30)
[2023-08-19] MEDS: diphenhydrAMINE 50 mg/mL SDV 1mL 25 MG IVP (13:31)
[2023-08-19] MEDS: methylPREDNISolone sod succ 40 mg/mL INJ IVP (13:32)
[2023-08-19 13:53] LABS: Alanine Aminotransferase 20 U/L (0-41); Albumin Level 4.3 g/dL (3.5-5.2); Alkaline Phosphatase 64 U/L (40-130); Aspartate Amino Transferase 18 U/L (0-40); Globulin 2.1 g/dL (1.3-4.6); Glomerular Filtration Rate 113.2 mL/min (90-130); Total Bilirubin 0.4 mg/dL (0.15-1.2); Total Protein 6.4 g/dL (6.6-8.7)
[2023-08-19] MEDS: tocilizumab 800 MG in sodium chloride 0.9% (100 ml) 100 ML 140 MG IV (13:58)
[2023-08-19 15:05] VITALS: BP 119/77; PULSE 55; RESP 17; TEMP 36.6; O2SAT 94
== END 2023-09-03 23:59 | disposition home or self-care (01) ==
PROVIDERS: PCP Family Medicine; Visit Provider Internal Medicine Rheumatology
DX: M05.79 Rheumatoid arthritis with rheumatoid factor of multiple sites without organ or systems involvement (principal)
CPT/HCPCS: 80076; 82565; 85025; 86140; 96365; 96375; J1200; J2920; J3262; J7050

== ENCOUNTER 2023-09-16 07:51 | Oncology outpatient (recurring) (ONCR) | payer MEDICARE, SELFPAY ==
[2023-09-16] MEDS: sodium chloride 0.9% 250 ML 75 ML IV (08:57)
[2023-09-16] MEDS: diphenhydrAMINE 50 mg/mL SDV 1mL 25 MG IVP (08:58)
[2023-09-16] MEDS: acetaminophen 325 mg Tablet 650 MG PO (08:58)
[2023-09-16] MEDS: methylPREDNISolone sod succ 40 mg/mL INJ IVP (08:59)
[2023-09-16] MEDS: tocilizumab 800 MG in sodium chloride 0.9% (100 ml) 100 ML 140 MG IV (09:25)
[2023-09-16 10:30] VITALS: BP 109/66; PULSE 63; RESP 16; TEMP 36.1; O2SAT 98
== END 2023-10-04 23:59 | disposition home or self-care (01) ==
LOC: ONCMED 07:52
PROVIDERS: PCP Family Medicine; Visit Provider Internal Medicine Rheumatology
DX: M05.9 Rheumatoid arthritis with rheumatoid factor, unspecified
CPT/HCPCS: 96375; 96413; J1200; J2920; J3262; J7050

== ENCOUNTER → 2023-10-13 09:44 | Outpatient (BNVA) | payer MEDICARE, SELFPAY | PROVIDERS: PCP Family Medicine; Visit Provider Internal Medicine Rheumatology | DX: M05.79 Rheumatoid arthritis with rheumatoid factor of multiple sites without organ or systems involvement (principal); M10.9 Gout, unspecified; Z79.899 Other long term (current) drug therapy; Z71.89 Other specified counseling | CPT/HCPCS: 99214 ==

== ENCOUNTER 2023-10-14 07:47 | Oncology outpatient (recurring) (ONCR) | payer MEDICARE, OTHER, SELFPAY ==
[2023-10-14 08:19] VITALS: BP 116/76; PULSE 59; RESP 17; TEMP 36.4; O2SAT 95
[2023-10-14 08:24] LABS: Basophils % 0.8 %; Eosinophils # 0.2 10^3/uL (0.0-0.8); Lymphocytes # 1.6 10^3/uL (0.8-4.8); Lymphocytes % 32.3 %; Mean Corpuscular HGB Conc 33.2 g/dL (30-55); Mean Corpuscular Hemoglobin 31.9 pg (27-33); Mean Platelet Volume 9.4 fL (7.4-10.4); Monocytes # 0.5 10^3/uL (0.2-0.9); Monocytes % 9.7 %; Neutrophils # 2.66 10^3/uL (1.8-7.7); Neutrophils % 52.8 %; Nucleated Red Blood Cells % 0 %; Platelet Count 147 10^3/cmm (157-399); Red Blood Count 5.21 10^6/uL (3.85-5.65); Red Cell Distribution Width 13.4 % (12.1-15.1); White Blood Count 5.04 10^3/uL (3.29-11.43)
[2023-10-14] MEDS: acetaminophen 325 mg Tablet 650 MG PO (08:33)
[2023-10-14] MEDS: sodium chloride 0.9% 250 ML 75 ML IV (08:34)
[2023-10-14] MEDS: diphenhydrAMINE 50 mg/mL SDV 1mL 25 MG IVP (08:37)
[2023-10-14] MEDS: methylPREDNISolone sod succ 40 mg/mL INJ IVP (08:41)
[2023-10-14 08:42] LABS: Alanine Aminotransferase 23 U/L (0-41); Albumin Level 4.3 g/dL (3.5-5.2); Alkaline Phosphatase 63 U/L (40-130); Globulin 2.5 g/dL (1.3-4.6); Glomerular Filtration Rate 113.2 mL/min (90-130); Total Bilirubin 0.5 mg/dL (0.15-1.2); Total Protein 6.8 g/dL (6.6-8.7)
[2023-10-14] MEDS: tocilizumab 800 MG in sodium chloride 0.9% (100 ml) 100 ML 140 MG IV (08:50)
[2023-10-14 09:19] LABS: Aspartate Amino Transferase 22 U/L (0-40)
[2023-10-14 09:29] VITALS: BP 118/74; PULSE 54; RESP 16; O2SAT 95
== END 2023-11-04 23:59 | disposition home or self-care (01) ==
PROVIDERS: PCP Family Medicine; Visit Provider Internal Medicine Rheumatology
DX: M05.79 Rheumatoid arthritis with rheumatoid factor of multiple sites without organ or systems involvement (principal); Z53.9 Procedure and treatment not carried out, unspecified reason
CPT/HCPCS: 80076; 82565; 85025; 86140; 96375; 96413; J1200; J2920; J3262; J7050

== ENCOUNTER 2023-11-11 07:39 | Oncology outpatient (recurring) (ONCR) | payer MEDICARE, OTHER, SELFPAY ==
[2023-11-11] MEDS: acetaminophen 325 mg Tablet 650 MG PO (08:23)
[2023-11-11] MEDS: sodium chloride 0.9% 250 ML 75 ML IV (08:24)
[2023-11-11] MEDS: diphenhydrAMINE 50 mg/mL SDV 1mL 25 MG IVP (08:32)
[2023-11-11] MEDS: methylPREDNISolone sod succ 40 mg/mL INJ IVP (08:37)
[2023-11-11 08:44] VITALS: BP 127/77; PULSE 51; RESP 17; TEMP 35.9; O2SAT 99
[2023-11-11] MEDS: tocilizumab 800 MG in sodium chloride 0.9% (100 ml) 100 ML 140 MG IV (08:48)
[2023-11-11 10:01] VITALS: BP 103/69; PULSE 53; RESP 17; TEMP 36.1; O2SAT 96
== END 2023-12-03 23:59 | disposition home or self-care (01) ==
PROVIDERS: PCP Family Medicine; Visit Provider Internal Medicine Rheumatology
DX: M05.9 Rheumatoid arthritis with rheumatoid factor, unspecified
CPT/HCPCS: 96375; 96413; J1200; J2920; J3262; J7050

== ENCOUNTER 2023-12-09 07:57 | Oncology outpatient (recurring) (ONCR) | payer MEDICARE, SELFPAY ==
[2023-12-09 08:11] VITALS: BP 134/80; PULSE 61; RESP 16; TEMP 36.7; O2SAT 96
[2023-12-09] MEDS: sodium chloride 0.9% 250 ML 75 ML IV (08:37)
[2023-12-09] MEDS: diphenhydrAMINE 50 mg/mL SDV 1mL 25 MG IVP (08:39)
[2023-12-09] MEDS: acetaminophen 325 mg Tablet 650 MG PO (08:42)
[2023-12-09] MEDS: methylPREDNISolone sod succ 40 mg/mL INJ IVP (08:55)
[2023-12-09] MEDS: tocilizumab 800 MG in sodium chloride 0.9% (100 ml) 100 ML 140 MG IV (09:20)
[2023-12-09 11:05] VITALS: BP 123/79; PULSE 50; RESP 18; TEMP 36; O2SAT 96
== END 2024-01-03 23:59 | disposition home or self-care (01) ==
LOC: ONCMED 07:58
PROVIDERS: PCP Family Medicine; Visit Provider Internal Medicine Rheumatology
DX: M05.9 Rheumatoid arthritis with rheumatoid factor, unspecified (principal)
CPT/HCPCS: 96375; 96413; J1200; J2920; J3262; J7050

== ENCOUNTER 2024-01-06 07:47 | Oncology outpatient (recurring) (ONCR) | payer MEDICARE, SELFPAY ==
[2024-01-06 08:11] VITALS: BP 126/74; PULSE 56; RESP 16; TEMP 36.8; O2SAT 96
[2024-01-06] MEDS: acetaminophen 325 mg Tablet 650 MG PO (08:28)
[2024-01-06] MEDS: sodium chloride 0.9% 250 ML 75 ML IV (08:29)
[2024-01-06] MEDS: methylPREDNISolone sod succ 40 mg/mL INJ IVP (08:32)
[2024-01-06] MEDS: diphenhydrAMINE 50 mg/mL SDV 1mL 25 MG IVP (08:36)
[2024-01-06] MEDS: TOCILIZUMAB IV (09:18)
[2024-01-06] MEDS: SODIUM CHLORIDE 0.9% IV (09:18)
[2024-01-06 10:40] VITALS: BP 122/76; PULSE 57; RESP 16; TEMP 36.4; O2SAT 96
== END 2024-02-02 23:59 | disposition home or self-care (01) ==
PROVIDERS: PCP Family Medicine; Visit Provider Internal Medicine Rheumatology
DX: M05.9 Rheumatoid arthritis with rheumatoid factor, unspecified (principal); Z53.9 Procedure and treatment not carried out, unspecified reason
CPT/HCPCS: 96375; 96413; J1200; J2919; J3262; J7050

== ENCOUNTER → 2024-02-08 14:44 | Outpatient (BNVA) | payer MEDICARE, SELFPAY | PROVIDERS: PCP Family Medicine; Visit Provider Internal Medicine Rheumatology | DX: M05.79 Rheumatoid arthritis with rheumatoid factor of multiple sites without organ or systems involvement (principal); M10.9 Gout, unspecified; Z79.899 Other long term (current) drug therapy; Z71.89 Other specified counseling | CPT/HCPCS: 99214 ==

== ENCOUNTER 2024-03-02 08:00 | Oncology outpatient (recurring) (ONCR) | payer MEDICARE, SELFPAY ==
[2024-02-03] MEDS: sodium chloride 0.9% 250 ML 75 ML IV (08:22)
[2024-02-03] MEDS: acetaminophen 325 mg Tablet 650 MG PO (08:22)
[2024-02-03] MEDS: methylPREDNISolone sod succ 40 mg/mL INJ IVP (08:23)
[2024-02-03 08:24] VITALS: BP 131/77; PULSE 59; RESP 16; TEMP 36.6; O2SAT 98
[2024-02-03] MEDS: diphenhydrAMINE 50 mg/mL SDV 1mL 25 MG IVP (08:26)
[2024-02-03 08:39] LABS: Basophils % 0.8 %; Eosinophils # 0.3 10^3/uL (0.0-0.8); Eosinophils % 5.7 %; Hematocrit 48.1 % (37-53); Lymphocytes # 1.7 10^3/uL (0.8-4.8); Lymphocytes % 34.8 %; Mean Corpuscular HGB Conc 34.1 g/dL (30-55); Mean Corpuscular Hemoglobin 32.5 pg (27-33); Mean Corpuscular Volume 95.4 fl (82-101); Mean Platelet Volume 9.4 fL (7.4-10.4); Monocytes # 0.4 10^3/uL (0.2-0.9); Neutrophils # 2.35 10^3/uL (1.8-7.7); Neutrophils % 49.3 %; Nucleated Red Blood Cells % 0 %; Platelet Count 147 10^3/cmm (157-399); Red Blood Count 5.04 10^6/uL (3.85-5.65); Red Cell Distribution Width 13.5 % (12.1-15.1); White Blood Count 4.77 10^3/uL (3.29-11.43)
[2024-02-03] MEDS: tocilizumab 800 MG in sodium chloride 0.9% (100 ml) 100 ML 140 MG IV (08:50)
[2024-02-03 09:10] LABS: Alanine Aminotransferase 23 U/L (0-41); Albumin Level 4.6 g/dL (3.5-5.2); Alkaline Phosphatase 61 U/L (40-130); Creatinine Clr Calc Pharmacy 113.6619; Glomerular Filtration Rate 96.7 mL/min (90-130); Total Bilirubin 0.5 mg/dL (0.15-1.2); Total Protein 6.6 g/dL (6.6-8.7)
[2024-02-03 09:54] VITALS: BP 134/79; PULSE 90; RESP 16; TEMP 36.4; O2SAT 94
[2024-02-03 10:18] LABS: Aspartate Amino Transferase 29 U/L (0-40)
[2024-03-02 08:11] VITALS: BP 157/79; PULSE 60; RESP 16; TEMP 36.4; O2SAT 99
[2024-03-02] MEDS: acetaminophen 325 mg Tablet 650 MG PO (08:39)
[2024-03-02] MEDS: sodium chloride 0.9% 250 ML 75 ML IV (08:39)
[2024-03-02] MEDS: methylPREDNISolone sod succ 40 mg/mL INJ IVP (08:40)
[2024-03-02] MEDS: diphenhydrAMINE 50 mg/mL SDV 1mL 25 MG IVP (08:43)
[2024-03-02] MEDS: tocilizumab 800 MG in sodium chloride 0.9% (100 ml) 100 ML 140 MG IV (09:14)
[2024-03-02 10:16] VITALS: BP 120/75; PULSE 57; RESP 17; TEMP 36.2; O2SAT 98
== END 2024-03-02 23:59 | disposition home or self-care (01) ==
PROVIDERS: PCP Family Medicine; Visit Provider Internal Medicine Rheumatology
DX: Z53.9 Procedure and treatment not carried out, unspecified reason (principal); M05.9 Rheumatoid arthritis with rheumatoid factor, unspecified
CPT/HCPCS: 80076; 82565; 85025; 86140; 96375; 96413; J1200; J2919; J3262; J7050

== ENCOUNTER 2024-03-30 07:52 | Oncology outpatient (recurring) (ONCR) | payer MEDICARE, SELFPAY ==
[2024-03-30 08:00] VITALS: BP 142/90; PULSE 59; RESP 16; TEMP 35.8; O2SAT 99
[2024-03-30] MEDS: sodium chloride 0.9% 250 ML 75 ML IV (08:20)
[2024-03-30] MEDS: acetaminophen 325 mg Tablet 650 MG PO (08:20)
[2024-03-30] MEDS: diphenhydrAMINE 50 mg/mL SDV 1mL 25 MG IVP (08:20)
[2024-03-30] MEDS: methylPREDNISolone sod succ 40 mg/mL INJ IVP (08:21)
[2024-03-30] MEDS: tocilizumab 800 MG in sodium chloride 0.9% (100 ml) 100 ML 140 MG IV (08:41)
[2024-03-30 09:45] VITALS: BP 125/79; PULSE 62; RESP 16; TEMP 36.6; O2SAT 97
== END 2024-04-03 23:59 | disposition home or self-care (01) ==
PROVIDERS: PCP Family Medicine; Visit Provider Internal Medicine Rheumatology
DX: M05.79 Rheumatoid arthritis with rheumatoid factor of multiple sites without organ or systems involvement (principal); Z79.620 Long term (current) use of immunosuppressive biologic
CPT/HCPCS: 96375; 96413; J1200; J2919; J3262; J7050

== ENCOUNTER 2024-04-27 07:51 | Oncology outpatient (recurring) (ONCR) | payer MEDICARE, SELFPAY ==
[2024-04-27 08:29] LABS: Basophils % 0.8 %; Eosinophils # 0.3 10^3/uL (0.0-0.8); Eosinophils % 5.2 %; Hematocrit 46.5 % (37-53); Lymphocytes # 1.5 10^3/uL (0.8-4.8); Lymphocytes % 30.6 %; Mean Corpuscular HGB Conc 34.6 g/dL (30-55); Mean Corpuscular Hemoglobin 32.9 pg (27-33); Mean Corpuscular Volume 95.1 fl (82-101); Mean Platelet Volume 9.2 fL (7.4-10.4); Monocytes # 0.3 10^3/uL (0.2-0.9); Monocytes % 6.9 %; Neutrophils # 2.76 10^3/uL (1.8-7.7); Neutrophils % 55.7 %; Nucleated Red Blood Cells % 0 %; Platelet Count 146 10^3/cmm (157-399); Red Blood Count 4.89 10^6/uL (3.85-5.65); Red Cell Distribution Width 13.6 % (12.1-15.1); White Blood Count 4.96 10^3/uL (3.29-11.43)
[2024-04-27] MEDS: sodium chloride 0.9% 250 ML 75 ML IV (08:33)
[2024-04-27] MEDS: methylPREDNISolone sod succ 40 mg/mL INJ IVP (08:36)
[2024-04-27] MEDS: diphenhydrAMINE 50 mg/mL SDV 1mL 25 MG IVP (08:39)
[2024-04-27] MEDS: acetaminophen 325 mg Tablet 650 MG PO (08:44)
[2024-04-27] MEDS: [UNRECOGNIZED DRUG - OTHER] IV (08:48)
[2024-04-27] MEDS: TOCILIZUMAB IV (08:48)
[2024-04-27 09:01] LABS: Alanine Aminotransferase 27 U/L (0-41); Albumin Level 4.4 g/dL (3.5-5.2); Albumin Level 4.5 g/dL (3.5-5.2); Alkaline Phosphatase 57 U/L (40-130); Anion Gap 15.3 (5-19); Aspartate Amino Transferase 20 U/L (0-40); Aspartate Amino Transferase 21 U/L (0-40); Blood Urea Nitrogen 15 mg/dL (8-23); Carbon Dioxide 26 mmol/L (22-29); Chloride 101 mmol/L (98-107); Creatinine Clr Calc Pharmacy 113.7786; Globulin 2.2 g/dL (1.3-4.6); Glomerular Filtration Rate 112.8 mL/min (90-130); Glucose 110 mg/dL (65-115); Osmolality Calculated 287 mOsm/kg (285-295); Potassium 4.3 mmol/L (3.5-5.1); Sodium 138 mmol/L (136-145); Total Bilirubin 0.3 mg/dL (0.15-1.2); Total Protein 6.5 g/dL (6.6-8.7); Total Protein 6.6 g/dL (6.6-8.7)
[2024-04-27 10:15] VITALS: BP 120/76; PULSE 62; RESP 17; TEMP 36.3; O2SAT 98
== END 2024-05-04 23:59 | disposition home or self-care (01) ==
LOC: ONCMED 07:52
PROVIDERS: PCP Family Medicine; Visit Provider Internal Medicine Rheumatology
DX: M05.79 Rheumatoid arthritis with rheumatoid factor of multiple sites without organ or systems involvement (principal); Z79.899 Other long term (current) drug therapy
CPT/HCPCS: 80053; 80076; 85025; 86140; 96375; 96413; J1200; J2919; J3262; J7050

== ENCOUNTER 2024-05-25 07:52 | Oncology outpatient (recurring) (ONCR) | payer MEDICARE, SELFPAY ==
[2024-05-25 08:12] VITALS: BP 154/94; PULSE 75; TEMP 36.1; O2SAT 95
[2024-05-25] MEDS: sodium chloride 0.9% 250 ML 75 ML IV (08:27)
[2024-05-25] MEDS: diphenhydrAMINE 50 mg/mL SDV 1mL 25 MG IVP (08:29)
[2024-05-25] MEDS: acetaminophen 325 mg Tablet 650 MG PO (08:30)
[2024-05-25] MEDS: methylPREDNISolone sod succ 40 mg/mL INJ IVP (08:34)
[2024-05-25] MEDS: tocilizumab 800 MG in sodium chloride 0.9% (100 ml) 100 ML 140 MG IV (09:08)
[2024-05-25 10:16] VITALS: BP 119/78; PULSE 60; TEMP 36.2; O2SAT 93
== END 2024-06-04 23:55 | disposition home or self-care (01) ==
PROVIDERS: PCP Family Medicine; Visit Provider Internal Medicine Rheumatology
DX: Z79.899 Other long term (current) drug therapy; M05.9 Rheumatoid arthritis with rheumatoid factor, unspecified
CPT/HCPCS: 96375; 96413; J1200; J2919; J3262; J7050

== ENCOUNTER → 2024-06-20 14:06 | Outpatient (BNVA) | payer MEDICARE, SELFPAY | PROVIDERS: PCP Family Medicine; Visit Provider Internal Medicine Rheumatology | DX: M05.79 Rheumatoid arthritis with rheumatoid factor of multiple sites without organ or systems involvement (principal); M10.9 Gout, unspecified; Z79.899 Other long term (current) drug therapy; Z71.85 Encounter for immunization safety counseling; M19.90 Unspecified osteoarthritis, unspecified site; M71.58 Other bursitis, not elsewhere classified, other site; K76.0 Fatty (change of) liver, not elsewhere classified | CPT/HCPCS: 99214 ==

== ENCOUNTER 2024-06-22 07:50 | Oncology outpatient (recurring) (ONCR) | payer MEDICARE, SELFPAY ==
[2024-06-22 08:04] VITALS: BP 144/87; PULSE 67
[2024-06-22] MEDS: diphenhydrAMINE 50 mg/mL SDV 1mL 25 MG IVP (08:26)
[2024-06-22] MEDS: sodium chloride 0.9% 250 ML 75 ML IV (08:26)
[2024-06-22] MEDS: acetaminophen 325 mg Tablet 650 MG PO (08:27)
[2024-06-22] MEDS: methylPREDNISolone sod succ 40 mg/mL INJ IVP (08:29)
[2024-06-22] MEDS: tocilizumab 800 MG in sodium chloride 0.9% (100 ml) 100 ML 140 MG IV (08:58)
[2024-06-22 10:20] VITALS: BP 121/78; PULSE 67; RESP 18; TEMP 36.6; O2SAT 98
== END 2024-07-04 23:59 | disposition home or self-care (01) ==
PROVIDERS: PCP Family Medicine; Visit Provider Internal Medicine Rheumatology
DX: Z79.899 Other long term (current) drug therapy (principal); M05.9 Rheumatoid arthritis with rheumatoid factor, unspecified
CPT/HCPCS: 96375; 96413; J1200; J2919; J3262; J7050

== ENCOUNTER 2024-07-20 08:14 | Oncology outpatient (recurring) (ONCR) | payer MEDICARE, SELFPAY ==
[2024-07-20 08:21] VITALS: BP 142/80; PULSE 58; RESP 16; TEMP 36.9; O2SAT 96
[2024-07-20 08:51] LABS: Basophils % 0.9 %; Eosinophils # 0.2 10^3/uL (0.0-0.8); Eosinophils % 4.2 %; Hematocrit 47.1 % (37-53); Lymphocytes # 1.3 10^3/uL (0.8-4.8); Lymphocytes % 29.2 %; Mean Corpuscular HGB Conc 33.8 g/dL (30-55); Mean Corpuscular Hemoglobin 32.7 pg (27-33); Mean Corpuscular Volume 96.9 fl (82-101); Mean Platelet Volume 9.3 fL (7.4-10.4); Monocytes # 0.5 10^3/uL (0.2-0.9); Monocytes % 10.3 %; Neutrophils # 2.46 10^3/uL (1.8-7.7); Nucleated Red Blood Cells % 0 %; Platelet Count 147 10^3/cmm (157-399); Red Blood Count 4.86 10^6/uL (3.85-5.65); Red Cell Distribution Width 13.6 % (12.1-15.1); White Blood Count 4.48 10^3/uL (3.29-11.43)
[2024-07-20] MEDS: acetaminophen 325 mg Tablet 650 MG PO (09:03)
[2024-07-20] MEDS: sodium chloride 0.9% 250 ML 75 ML IV (09:04)
[2024-07-20] MEDS: diphenhydrAMINE 50 mg/mL SDV 1mL 25 MG IVP (09:05)
[2024-07-20 09:10] LABS: Alanine Aminotransferase 41 U/L (0-41); Albumin Level 4.5 g/dL (3.5-5.2); Alkaline Phosphatase 62 U/L (40-130); Aspartate Amino Transferase 30 U/L (0-40); Glomerular Filtration Rate 96.7 mL/min (90-130); Total Bilirubin 0.4 mg/dL (0.15-1.2); Total Protein 6.5 g/dL (6.6-8.7)
[2024-07-20] MEDS: methylPREDNISolone sod succ 40 mg/mL INJ IVP (09:10)
[2024-07-20] MEDS: tocilizumab 800 MG in sodium chloride 0.9% (100 ml) 100 ML 140 MG IV (09:41)
[2024-07-20 11:01] VITALS: BP 126/74; PULSE 60; RESP 16; TEMP 36.3; O2SAT 96
== END 2024-08-04 23:59 | disposition home or self-care (01) ==
PROVIDERS: PCP Family Medicine; Visit Provider Internal Medicine Rheumatology
DX: Z79.899 Other long term (current) drug therapy; M05.79 Rheumatoid arthritis with rheumatoid factor of multiple sites without organ or systems involvement; Z53.9 Procedure and treatment not carried out, unspecified reason
CPT/HCPCS: 80076; 82565; 85025; 86140; 96365; J1200; J2919; J3262; J7050

== ENCOUNTER 2024-08-17 08:18 | Oncology outpatient (recurring) (ONCR) | payer MEDICARE, SELFPAY ==
[2024-08-17 08:27] VITALS: BP 150/91; PULSE 69; RESP 16; TEMP 36.4; O2SAT 98
[2024-08-17] MEDS: acetaminophen 325 mg Tablet 650 MG PO (09:02)
[2024-08-17] MEDS: diphenhydrAMINE 50 mg/mL SDV 1mL 25 MG IVP (09:03)
[2024-08-17] MEDS: methylPREDNISolone sod succ 40 mg/mL INJ IVP (09:06)
[2024-08-17] MEDS: tocilizumab 800 MG in sodium chloride 0.9% (100 ml) 100 ML 140 MG IV (09:26)
[2024-08-17 10:35] VITALS: BP 141/68; PULSE 74; RESP 17; TEMP 36.4; O2SAT 98
== END 2024-09-03 23:59 | disposition home or self-care (01) ==
PROVIDERS: PCP Family Medicine; Visit Provider Internal Medicine Rheumatology
DX: M05.79 Rheumatoid arthritis with rheumatoid factor of multiple sites without organ or systems involvement (principal); Z79.899 Other long term (current) drug therapy
CPT/HCPCS: 96375; 96413; J1200; J2919; J3262

== ENCOUNTER 2024-09-21 07:22 | Oncology outpatient (recurring) (ONCR) | payer MEDICARE, SELFPAY ==
[2024-09-21 07:41] VITALS: BP 133/84; PULSE 64; RESP 17; TEMP 36.1; O2SAT 96
[2024-09-21 07:56] LABS: Basophils % 0.9 %; Eosinophils # 0.2 10^3/uL (0.0-0.8); Hematocrit 48.4 % (37-53); Lymphocytes # 1.3 10^3/uL (0.8-4.8); Lymphocytes % 28.8 %; Mean Corpuscular HGB Conc 33.5 g/dL (30-55); Mean Corpuscular Hemoglobin 33.5 pg (27-33); Mean Platelet Volume 9.4 fL (7.4-10.4); Monocytes # 0.5 10^3/uL (0.2-0.9); Neutrophils # 2.53 10^3/uL (1.8-7.7); Neutrophils % 55.9 %; Nucleated Red Blood Cells % 0 %; Platelet Count 155 10^3/cmm (157-399); Red Blood Count 4.84 10^6/uL (3.85-5.65); Red Cell Distribution Width 13.4 % (12.1-15.1); White Blood Count 4.52 10^3/uL (3.29-11.43)
[2024-09-21 08:16] LABS: Alanine Aminotransferase 38 U/L (0-41); Albumin Level 4.6 g/dL (3.5-5.2); Alkaline Phosphatase 77 U/L (40-130); Aspartate Amino Transferase 29 U/L (0-40); Creatinine Clr Calc Pharmacy 113.1958; Glomerular Filtration Rate 96.7 mL/min (90-130); Total Bilirubin 0.5 mg/dL (0.15-1.2); Total Protein 6.6 g/dL (6.6-8.7)
[2024-09-21] MEDS: sodium chloride 0.9% 250 ML 50 ML IV (08:22)
[2024-09-21] MEDS: diphenhydrAMINE 50 mg/mL SDV 1mL 25 MG IVP (08:22)
[2024-09-21] MEDS: acetaminophen 325 mg Tablet 650 MG PO (08:22)
[2024-09-21] MEDS: methylPREDNISolone sod succ 40 mg/mL INJ IVP (08:31)
[2024-09-21] MEDS: tocilizumab 800 MG in sodium chloride 0.9% (100 ml) 100 ML 140 MG IV (08:55)
[2024-09-21 09:24] LABS: Erythrocyte Sedimentation Rate < 1 mm/hr (0-10)
[2024-09-21 09:59] VITALS: BP 109/71; PULSE 52; RESP 17; TEMP 36.1; O2SAT 97
== END 2024-10-04 23:59 | disposition home or self-care (01) ==
PROVIDERS: PCP Family Medicine; Visit Provider Internal Medicine Rheumatology
DX: M05.79 Rheumatoid arthritis with rheumatoid factor of multiple sites without organ or systems involvement (principal); Z79.899 Other long term (current) drug therapy
CPT/HCPCS: 80076; 82565; 85025; 85651; 86140; 96375; 96413; J1200; J2919; J3262; J7050

== ENCOUNTER 2024-09-28 09:05 | Emergency (ER) | payer MEDICARE, SELFPAY ==
--- NOTE | 2024-09-28 09:09 | ECG_ITS ---
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 Measurements Intervals [place] Rate: 61 P: 100 HI: 235 QRS: -49 QRSD: 136 T: 35 QT: 419 QTc: 424 Interpretive Statements SINUS RHYTHM WITH FIRST DEGREE AV BLOCK RIGHT BUNDLE BRANCH BLOCK [120+ ms QRS DURATION, UPRIGHT V1, 40+ ms S IN I/aVL/V4/V5/V6] LEFT ANTERIOR FASCICULAR BLOCK [QRS AXIS <= -45, QR IN I, RS IN II] Compared to ECG 03/06/2019 23:42:03 Left anterior fascicular block now present Left-axis deviation no longer present Myocardial infarct finding no longer present Electronically Signed On 09-28-2024 17:34:23 COLLECTION CARD CLERK by Claudia Singh M.D. [email or web address]
[2024-09-28 09:12] VITALS: BP 175/88; PULSE 58; RESP 17; TEMP 36.7; O2SAT 94; BMI 30.5
--- NOTE | 2024-09-28 09:52 | XRR_ITS ---
PROCEDURE INFORMATION: Exam: XR Chest Exam date and time: 09/28/2024 10:22 AM Age: 68 years old Clinical indication: Chest wall pain; Prior surgery; Surgery date: 6+ months; Surgery type: Lung; Additional info: Cp TECHNIQUE: Imaging protocol: Radiologic exam of the chest. Views: 1 view. COMPARISON: CR XR chest 1V [id number] 03/06/2019 11:59 PM FINDINGS: Lungs: Unremarkable. No consolidation. Pleural spaces: Unremarkable. No pleural effusion. No pneumothorax. Heart/Mediastinum: Unremarkable. No cardiomegaly. Bones/joints: Unremarkable. XR/XR chest 1V portable [id number] IMPRESSION: No acute cardiopulmonary disease.
[2024-09-28 10:07] LABS: Basophils # 0.1 10^3/uL (0.0-0.1); Basophils % 1.3 %; Eosinophils # 0.1 10^3/uL (0.0-0.8); Eosinophils % 3.5 %; Hematocrit 49.2 % (37-53); Lymphocytes % 25.3 %; Mean Corpuscular HGB Conc 33.3 g/dL (30-55); Mean Platelet Volume 8.8 fL (7.4-10.4); Monocytes # 0.3 10^3/uL (0.2-0.9); Monocytes % 8.1 %; Neutrophils # 2.42 10^3/uL (1.8-7.7); Nucleated Red Blood Cells % 0 %; Platelet Count 116 10^3/cmm (157-399); Red Blood Count 4.97 10^6/uL (3.85-5.65); Red Cell Distribution Width 13.3 % (12.1-15.1); White Blood Count 3.96 10^3/uL (3.29-11.43)
[2024-09-28 10:25] LABS: Alanine Aminotransferase 28 U/L (0-41); Albumin Level 4.3 g/dL (3.5-5.2); Alkaline Phosphatase 78 U/L (40-130); Anion Gap 14.5 (5-19); Aspartate Amino Transferase 21 U/L (0-40); Blood Urea Nitrogen 14 mg/dL (8-23); Calcium 9.1 mg/dL (8.5-10.5); Carbon Dioxide 26 mmol/L (22-29); Chloride 103 mmol/L (98-107); Creatinine Clr Calc Pharmacy 112.2631; Glomerular Filtration Rate 96.7 mL/min (90-130); Glucose 109 mg/dL (65-115); Osmolality Calculated 289 mOsm/kg (285-295); Potassium 4.5 mmol/L (3.5-5.1); Sodium 139 mmol/L (136-145); Total Bilirubin 0.4 mg/dL (0.15-1.2); Total Protein 6.3 g/dL (6.6-8.7); Troponin(5th) Baseline 10 ng/L (0-15)
--- NOTE | 2024-09-28 10:42 | ED_ITS ---
HPI - Chest Pain 2 General: Chief Complaint: Chest Pain Stated Complaint: chest pain Time Seen by Provider: 09/28/24 09:52 Source: patient Mode of arrival: ambulatory Limitations: no limitations History of Present Illness: 68-year-old male states that he has been having right-sided chest pain over the last 2 weeks states he was splitting wood 2 weeks ago and started having pain then he states it did improve he woke up this morning with worsening pain states much worse with palpation and movement states he taken hydrocodone this morning as well and his pain has improved is now a 2 out of 10 and denies any fever denies any cough Associated symptoms: Deny abdominal pain, fever(s), nausea or vomiting Related Data Home Medications Medication Instructions Recorded Confirmed magnesium 250 mg tablet 500 mg PO ONCE 10/12/19 09/28/24 tocilizumab 400 mg/20 mL (20 400 mg IV Q30D 10/12/19 09/28/24 mg/mL) intravenous solution (Actemra) aspirin 81 mg tablet,delayed 81 mg PO DAILY 01/18/20 09/28/24 release acyclovir 400 mg tablet 400 mg PO DAILY 09/28/24 09/28/24 albuterol sulfate 90 mcg/actuation 2 puff inhalation Q6H PRN 09/28/24 09/28/24 aerosol inhaler Shortness Of Breath Or Wheezing beclomethasone dipropionate 80 1 inh inhalation DAILY 09/28/24 09/28/24 mcg/actuation HFA breath activated aerosol (Qvar RediHaler) hydrocodone 5 mg-acetaminophen 325 1 tab PO Q4H PRN Pain 09/28/24 09/28/24 mg tablet levothyroxine 150 mcg tablet 150 mcg PO DAILY 09/28/24 09/28/24 lisinopril 20 mg tablet 20 mg PO DAILY 09/28/24 09/28/24 vit A-vit [id number] lozenges 1 brendan PO Q2H 09/28/24 09/28/24 (Zinc (with Vitamins A and C) Lozenges) Previous Rx's Medication Instructions Recorded diclofenac sodium 75 mg 75 mg PO BID PRN pain #30 tabs 02/12/22 tablet,delayed release sildenafil 100 mg tablet (Viagra) 100 mg PO DAILY PRN sexual 11/02/23 activity #10 tabs allopurinol 100 mg tablet 200 mg (2 x 100 mg) PO DAILY #180 02/08/24 tabs diclofenac sodium 1 % topical gel 4 g topical QID #100 grams 05/25/24 fluticasone propionate 50 See Rx Instructions .Route 09/05/24 mcg/actuation nasal .COMPLEX #16 grams spray,suspension alprazolam 0.5 mg tablet 0.5 mg PO .bed time PRN sleep 60 09/07/24 days #60 tabs Allergies Allergy/AdvReac Type Severity Reaction Status Date / Time No Known Allergies Allergy Verified 08/28/24 16:04 Review of Systems 2 Const: Denies: fever(s), chills, body aches or change in appetite ENMT: Denies: throat pain or dental pain Card: Reports: chest pain Resp: Denies: non-productive cough GI: Denies: abdominal pain, nausea, vomiting or diarrhea Musc: Denies: neck pain or back pain Skin/Breast: Denies: rash Neuro: Denies: headache(s) PFSH ED 2 PFSH: Medical History Gout Seropositive rheumatoid arthritis of multiple sites GERD (gastroesophageal reflux disease) History of hypothyroidism Transaminitis Otitis media DVT (deep venous thrombosis) Hypercholesteremia Immunization counseling High risk medication use Seropositive rheumatoid arthritis Oral mucosal lesion Hypertension Degenerative disc disease Surgical History History of lung surgery Previous back surgery H/O vasectomy Social History Smoking and tobacco/nicotine status: current some day tobacco/nicotine user (marijuana ) smokeless tobacco Quit status (tobacco/nicotine): has quit using Former quit date comment: 08/27/2019 Alcohol intake: current Alcohol type: beer Substance/Drug Use: never Physical Exam 2 Const: COMMON NORMALS: no acute distress, patient oriented x3 and healthy appearing HENMT: COMMON NORMALS: normocephalic and atraumatic HEAD & SCALP: n ormocephalic and atraumatic Eye: COMMON NORMALS: Equal, round and reactive pupils present and EOMs intact bilaterally PUPIL: Yes Equal, round and reactive pupils present Neck/C-Spine: COMMON NORMALS: full ROM and supple Chest: COMMONS NORMALS: normal inspection of the chest and normal palpation of entire chest wall Resp: COMMON NORMALS: normal respiratory effort, No retractions, No use of accessory muscles and clear to auscultation bilaterally AUSCULTATION: clear to auscultation bilaterally Cardio: COMMON NORMALS: regular rate, regular rhythm and No murmurs present (Cardio) RATE: regular rate RHYTHM: regular rhythm GI: COMMON NORMALS: Normal to inspection, nondistended, normoactive bowel sounds present, Soft to palpation, non-tender and no masses PALPATION: Yes Soft to palpation Extremity: COMMON NORMALS: normal to inspection and full ROM Neuro: COMMON NORMALS: patient oriented x3, moves all extremities and no focal motor deficits Psych: COMMON NORMALS: mental status grossly normal, Normal thought process present and cooperative THOUGHT PROCESS: Normal thought process present Skin: COMMON NORMALS: no rashes or lesions noted and no wounds GENERAL SKIN EXAM: no rashes or lesions noted Course 2 Vital Signs: Vital signs: Vital Signs Temperature 98.0 F 09/28/24 09:12 Pulse Rate 58 L 09/28/24 09:12 Respiratory Rate 17 09/28/24 09:12 Blood Pressure 175/88 09/28/24 09:12 Pulse Oximetry 94 09/28/24 09:12 Oxygen Delivery Me thod Room Air 09/28/24 09:12 MDM - Chest Pain Medical Decision Making Patient presents here with chest pain is likely muscular in nature troponins imaging here is all normal no signs of PE or dissection he feels improved he is stable for discharge she is follow-up with PCP return if worsening. Medical Records I reviewed the patient's medical records. Lab Data I reviewed the patient's lab results. 09/28/24 10:00 09/28/24 10:00 Radiology Impressions Chest X-Ray 09/28/24 09:52 IMPRESSION: No acute cardiopulmonary disease. Laboratory Results WBC 3.96 10^3/uL (3.29-11.43) 09/28/24 10:00 RBC 4.97 10^6/uL (3.85-5.65) 09/28/24 10:00 Hgb 16.40 g/dL (11.27-16.99) 09/28/24 10:00 Hct 49.2 % (37-53) 09/28/24 10:00 MCV 99.0 fl (82-101) 09/28/24 10:00 MCH 33.0 pg (27-33) 09/28/24 10:00 MCHC 33.3 g/dL (30-55) 09/28/24 10:00 RDW 13.3 % (12.1-15.1) 09/28/24 10:00 Plt Count 116 10^3/cmm (157-399) L 09/28/24 10:00 MPV 8.8 fL (7.4-10.4) 09/28/24 10:00 Neut % (Auto) 61.0 % 09/28/24 10:00 Lymph % (Auto) 25.3 % 09/28/24 10:00 [place] % (Auto) 8.1 % 09/28/24 10:00 Eos % (Auto) 3.5 % 09/28/24 10:00 Baso % (Auto) 1.3 % 09/28/24 10:00 Neut # (Auto) 2.42 10^3/uL (1.8-7.7) 09/28/24 10:00 Lymph # (Auto) 1.0 10^3/uL (0.8-4.8) 09/28/24 10:00 [place] # (Auto) 0.3 10^3/uL (0.2-0.9) 09/28/24 10:00 Eos # (Auto) 0.1 10^3/uL (0.0-0.8) 09/28/24 10:00 Baso # (Auto) 0.1 10^3/uL (0.0-0.1) 09/28/24 10:00 Nucleated RBC % (auto) 0 % 09/28/24 10:00 Nucleated RBCs # 0.0 /100WBC 09/28/24 10:00 Sodium 139 mmol/L (136-145) 09/28/24 10:00 Potassium 4.5 mmol/L (3.5-5.1) 09/28/24 10:00 Chloride 103 mmol/L (98-107) 09/28/24 10:00 Carbon Dioxide 26 mmol/L (22-29) 09/28/24 10:00 Anion Gap 14.5 (5-19) 09/28/24 10:00 BUN 14 mg/dL (8-23) 09/28/24 10:00 Creatinine 0.8 mg/dL (0.7-1.2) 09/28/24 10:00 GFR Calculation 96.7 mL/min (90-130) 09/28/24 10:00 Glucose 109 mg/dL (65-115) 09/28/24 10:00 Calculated Osmolality 289 mOsm/kg (285-295) 09/28/24 10:00 Calcium 9.1 mg/dL (8.5-10.5) 09/28/24 10:00 Total Bilirubin 0.4 mg/dL (0.15-1.2) 09/28/24 10:00 AST 21 U/L (0-40) 09/28/24 10:00 ALT 28 U/L (0-41) 09/28/24 10:00 Alkaline Phosphatase 78 U/L (40-130) 09/28/24 10:00 Troponin T Baseline 10 ng/L (0-15) 09/28/24 10:00 Troponin T 120 Minute 10.11 ng/L (0-15) 09/28/24 12:02 Delta Troponin T 0.11 ABS# (0-10) 09/28/24 12:02 Total Protein 6.3 g/dL (6.6-8.7) L 09/28/24 10:00 Albumin 4.3 g/dL (3.5-5.2) 09/28/24 10:00 Globulin 2.0 g/dL (1.3-4.6) 09/28/24 10:00 All radiology interpretation(s) finalized by discharge Discharge Plan Discharge Patient Disposition: Home Clinical Impression: Chest pain Condition: Stable Prescriptions: No Action magnesium 250 mg tablet 500 mg PO ONCE Actemra 400 mg/20 mL (20 mg/mL) solution 400 mg IVP Q30D aspirin 81 mg tablet,delayed release (DR/EC) 81 mg PO DAILY diclofenac sodium 75 mg tablet,delayed release (DR/EC) 75 mg PO BID PRN (Reason: pain) Qty: 30 1RF allopurinol 100 mg tablet 200 mg PO DAILY Qty: 180 1RF sildenafil [Viagra] 100 mg tablet 100 mg PO DAILY PRN (Reason: sexual activity) Qty: 10 4RF Rx Instructions: administer 30 minutes to 4 hours before activity diclofenac sodium 1 % gel 4 g topical QID Qty: 100 2RF Rx Instructions: apply to affected area as needed fluticasone propionate 50 mcg/actuation spray,suspension See Rx Instructions .ROUTE .COMPLEX Qty: 16 6RF Dose Instruction: USE TWO SPRAYS in each nostril EVERY DAY NEEDED FOR allergy symptoms Rx Instructions: USE TWO SPRAYS in each nostril EVERY DAY NEEDED FOR allergy symptoms alprazolam 0.5 mg tablet 0.5 mg PO .bed time PRN (Reason: sleep) 60 Days Qty: 60 2RF hydrocodone-acetaminophen 5-325 mg tablet 1 tab PO Q4H PRN (Reason: Pain) Zinc (with A and C) Lozenges Lozenge 1 brendan PO Q2H lisinopril 20 mg tablet 20 mg PO DAILY Rx Instructions: TAKE 2 TABLETS BY MOUTH ONCE DAILY acyclovir 400 mg tablet 400 mg PO DAILY Rx Instructions: TAKE 1 TABLET BY MOUTH EVERY DAY levothyroxine 150 mcg tablet 150 mcg PO DAILY Rx Instructions: TAKE 1 TABLET BY MOUTH EVERY DAY albuterol sulfate 90 mcg/actuation HFA aerosol inhaler 2 puff inhalation Q6H PRN (Reason: Shortness Of Breath Or Wheezing) Rx Instructions: INHALE 2 PUFFS BY MOUTH EVERY 6 HOURS NEEDED FOR SHORTNESS OF BREATH OR WHEEZING Qvar RediHaler 80 mcg/actuation HFA aerosol breath activated 1 inh inhalation DAILY Rx Instructions: INHALE 1 PUFF BY MOUTH TWICE DAILY Discharge Orders: Discharge ED (Routine); Ordered 09/28/24 Ordered By: Melisa English Referrals: Kristian Schneider MD [Primary Care Provider] - Discharge Diet: Advance as tolerated Discharge Activity: Resume usual activity Patient Instructions: Chest Pain (ED) Coding Level of Care Code ED Wheat [employer] O[employer] Flake Miller for Patricia Chu
[2024-09-28] MEDS: ketorolac 30 mg/mL INJ 15 MG IVP (11:14)
[2024-09-28 11:15] VITALS: BP 161/104; PULSE 58; O2SAT 97
[2024-09-28 11:30] VITALS: BP 138/86; PULSE 53; O2SAT 95
--- NOTE | 2024-09-28 11:53 | ECG_ITS ---
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 Measurements Intervals [place] Rate: 55 P: 79 CO: 249 QRS: -40 QRSD: 151 T: 19 QT: 438 QTc: 420 Interpretive Statements SINUS BRADYCARDIA WITH FIRST DEGREE AV BLOCK LEFT AXIS DEVIATION [QRS AXIS < -30] RIGHT BUNDLE BRANCH BLOCK [120+ ms QRS DURATION, UPRIGHT V1, 40+ ms S IN I/aVL/V4/V5/V6] Compared to ECG 09/28/2024 09:09:56 Left-axis deviation now present Sinus rhythm no longer present Left anterior fascicular block no longer present Electronically Signed On 09-28-2024 17:39:13 CRUSHER SCREEN REPAIRER by Claudia Singh M.D. [id number]
[2024-09-28 12:28] LABS: Troponin 5 2HR 10.11 ng/L (0-15); Troponin 5 2HR Delta 0.11 ABS# (0-10)
[2024-09-28 12:52] VITALS: BP 134/94; PULSE 56; O2SAT 98
== END 2024-09-28 12:57 | disposition home or self-care (01) ==
PROVIDERS: Emergency Provider Emergency Medicine; PCP Family Medicine
DX: R07.9 Chest pain, unspecified (principal); Z79.82 Long term (current) use of aspirin; F17.200 Nicotine dependence, unspecified, uncomplicated; I10 Essential (primary) hypertension
CPT/HCPCS: 71045; 80053; 84484; 85025; 93005; 96374; 99285; J1885

== ENCOUNTER 2024-10-19 07:39 | Oncology outpatient (recurring) (ONCR) | payer MEDICARE, SELFPAY ==
[2024-10-19 07:59] VITALS: BP 137/79; PULSE 60; RESP 18; TEMP 36.4; O2SAT 97
[2024-10-19] MEDS: sodium chloride 0.9% 250 ML 75 ML IV (08:17)
[2024-10-19] MEDS: methylPREDNISolone sod succ 40 mg/mL INJ IVP (08:19)
[2024-10-19] MEDS: acetaminophen 325 mg Tablet 650 MG PO (08:20)
[2024-10-19] MEDS: diphenhydrAMINE 50 mg/mL SDV 1mL 25 MG IVP (08:24)
[2024-10-19] MEDS: TOCILIZUMAB IV (08:59)
[2024-10-19] MEDS: SODIUM CHLORIDE 0.9% IV (08:59)
[2024-10-19 10:10] VITALS: BP 129/76; PULSE 65; RESP 17; O2SAT 95
== END 2024-11-04 23:59 | disposition home or self-care (01) ==
PROVIDERS: PCP Family Medicine; Visit Provider Internal Medicine Rheumatology
DX: M05.79 Rheumatoid arthritis with rheumatoid factor of multiple sites without organ or systems involvement (principal); Z79.899 Other long term (current) drug therapy
CPT/HCPCS: 96375; 96413; J1200; J2919; J3262; J7050

== ENCOUNTER 2024-12-08 08:16 | Oncology outpatient (recurring) (ONCR) | payer MEDICARE, SELFPAY ==
[2024-12-08] MEDS: sodium chloride 0.9% 250 ML 75 ML IV (09:26)
[2024-12-08] MEDS: diphenhydrAMINE 50 mg/mL SDV 1mL 25 MG IVP (09:29)
[2024-12-08] MEDS: acetaminophen 325 mg Tablet 650 MG PO (09:29)
[2024-12-08] MEDS: methylPREDNISolone sod succ 40 mg/mL INJ IVP (09:30)
[2024-12-08] MEDS: TOCILIZUMAB AAZG IV (10:31)
[2024-12-08] MEDS: SODIUM CHLORIDE 0.9% IV (10:31)
[2024-12-08 11:45] VITALS: BP 126/82; PULSE 62; RESP 17; TEMP 36.8; O2SAT 95
== END 2025-01-02 23:59 | disposition home or self-care (01) ==
PROVIDERS: PCP Family Medicine; Visit Provider Internal Medicine Rheumatology
DX: M05.79 Rheumatoid arthritis with rheumatoid factor of multiple sites without organ or systems involvement (principal); Z79.899 Other long term (current) drug therapy
CPT/HCPCS: 96375; 96413; J1200; J2919; J7050; J9999; Q5135

== ENCOUNTER → 2024-12-19 13:48 | Outpatient (BNVA) | payer MEDICARE, SELFPAY | PROVIDERS: PCP Family Medicine; Visit Provider Internal Medicine Rheumatology | DX: M05.79 Rheumatoid arthritis with rheumatoid factor of multiple sites without organ or systems involvement (principal); M10.9 Gout, unspecified; Z79.899 Other long term (current) drug therapy; Z71.89 Other specified counseling | CPT/HCPCS: 99214 ==

== ENCOUNTER 2025-01-05 08:19 | Oncology outpatient (recurring) (ONCR) | payer MEDICARE, SELFPAY ==
[2025-01-05 08:33] VITALS: BMI 30.7
[2025-01-05 08:34] VITALS: BP 131/83; PULSE 86; RESP 18; TEMP 36.4; O2SAT 91
[2025-01-05 08:53] LABS: Basophils % 1.1 %; Eosinophils # 0.2 10^3/uL (0.0-0.8); Eosinophils % 4.4 %; Hematocrit 47.5 % (37-53); Lymphocytes # 1.2 10^3/uL (0.8-4.8); Lymphocytes % 32.1 %; Mean Corpuscular HGB Conc 33.5 g/dL (30-55); Mean Corpuscular Hemoglobin 32.6 pg (27-33); Mean Corpuscular Volume 97.5 fl (82-101); Monocytes # 0.3 10^3/uL (0.2-0.9); Monocytes % 7.8 %; Neutrophils # 1.96 10^3/uL (1.8-7.7); Neutrophils % 54.3 %; Nucleated Red Blood Cells % 0 %; Platelet Count 123 10^3/cmm (157-399); Red Blood Count 4.87 10^6/uL (3.85-5.65); Red Cell Distribution Width 13.5 % (12.1-15.1); White Blood Count 3.61 10^3/uL (3.29-11.43)
[2025-01-05] MEDS: sodium chloride 0.9% 250 ML 25 ML IV (08:58)
[2025-01-05] MEDS: methylPREDNISolone sod succ 40 mg/mL INJ IVP (08:58)
[2025-01-05] MEDS: acetaminophen 325 mg Tablet 650 MG PO (08:58)
[2025-01-05] MEDS: diphenhydrAMINE 50 mg/mL SDV 1mL 25 MG IVP (09:02)
[2025-01-05 09:04] LABS: Erythrocyte Sedimentation Rate < 1 mm/hr (0-10)
[2025-01-05 09:16] LABS: Alanine Aminotransferase 46 U/L (0-41); Albumin Level 4.4 g/dL (3.5-5.2); Alkaline Phosphatase 71 U/L (40-130); Aspartate Amino Transferase 33 U/L (0-40); Creatinine Clr Calc Pharmacy 111.2059; Globulin 1.9 g/dL (1.3-4.6); Glomerular Filtration Rate 96.4 mL/min (90-130); Total Bilirubin 0.3 mg/dL (0.15-1.2); Total Protein 6.3 g/dL (6.6-8.7)
[2025-01-05] MEDS: SODIUM CHLORIDE 0.9% IV (09:32)
[2025-01-05] MEDS: TOCILIZUMAB AAZG IV (09:32)
[2025-01-05 10:42] VITALS: BP 123/89; PULSE 58; RESP 18; TEMP 36.3; O2SAT 92
== END 2025-02-01 23:59 | disposition home or self-care (01) ==
PROVIDERS: PCP Family Medicine; Visit Provider Internal Medicine Rheumatology
DX: M05.79 Rheumatoid arthritis with rheumatoid factor of multiple sites without organ or systems involvement (principal); Z79.899 Other long term (current) drug therapy
CPT/HCPCS: 80076; 82565; 85025; 85651; 86140; 96375; 96413; A4222; J1200; J2919; J7050; J9999; Q5135

== ENCOUNTER 2025-02-02 07:59 | Oncology outpatient (recurring) (ONCR) | payer MEDICARE, SELFPAY ==
[2025-02-02] MEDS: sodium chloride 0.9% 250 ML 75 ML IV (08:36)
[2025-02-02] MEDS: diphenhydrAMINE 50 mg/mL SDV 1mL 25 MG IVP (08:37)
[2025-02-02] MEDS: acetaminophen 325 mg Tablet 650 MG PO (08:37)
[2025-02-02] MEDS: methylPREDNISolone sod succ 40 mg/mL INJ IVP (08:40)
[2025-02-02] MEDS: TOCILIZUMAB AAZG IV (09:18)
[2025-02-02] MEDS: SODIUM CHLORIDE 0.9% IV (09:18)
[2025-02-02 10:38] VITALS: BP 130/82; PULSE 57; RESP 17; TEMP 36.6; O2SAT 98
== END 2025-03-04 23:59 | disposition home or self-care (01) ==
PROVIDERS: PCP Family Medicine; Visit Provider Internal Medicine Rheumatology
DX: M05.79 Rheumatoid arthritis with rheumatoid factor of multiple sites without organ or systems involvement (principal); Z79.899 Other long term (current) drug therapy
CPT/HCPCS: 96365; 96375; J1200; J2919; J7050; J9999; Q5135

== ENCOUNTER 2025-03-09 07:40 | Oncology outpatient (recurring) (ONCR) | payer MEDICARE, SELFPAY ==
[2025-03-09 08:10] LABS: Erythrocyte Sedimentation Rate < 1 mm/hr (0-10)
[2025-03-09] MEDS: sodium chloride 0.9% 250 ML 75 ML IV (08:15)
[2025-03-09 08:16] LABS: Basophils % 0.6 %; Eosinophils # 0.2 10^3/uL (0.0-0.8); Hematocrit 47.4 % (37-53); Lymphocytes # 1.5 10^3/uL (0.8-4.8); Lymphocytes % 31.4 %; Mean Corpuscular HGB Conc 33.8 g/dL (30-55); Mean Corpuscular Hemoglobin 32.3 pg (27-33); Mean Corpuscular Volume 95.8 fl (82-101); Mean Platelet Volume 9.5 fL (7.4-10.4); Monocytes # 0.4 10^3/uL (0.2-0.9); Monocytes % 7.8 %; Neutrophils # 2.65 10^3/uL (1.8-7.7); Nucleated Red Blood Cells % 0 %; Platelet Count 142 10^3/cmm (157-399); Red Blood Count 4.95 10^6/uL (3.85-5.65); Red Cell Distribution Width 13.2 % (12.1-15.1); White Blood Count 4.74 10^3/uL (3.29-11.43)
[2025-03-09] MEDS: acetaminophen 325 mg Tablet 650 MG PO (08:17)
[2025-03-09] MEDS: methylPREDNISolone sod succ 40 mg/mL INJ IVP (08:17)
[2025-03-09] MEDS: diphenhydrAMINE 50 mg/mL SDV 1mL 25 MG IVP (08:22)
[2025-03-09 08:34] LABS: Alanine Aminotransferase 40 U/L (0-41); Albumin Level 4.4 g/dL (3.5-5.2); Alkaline Phosphatase 60 U/L (40-130); Aspartate Amino Transferase 29 U/L (0-40); Glomerular Filtration Rate 96.4 mL/min (90-130); Total Bilirubin 0.3 mg/dL (0.15-1.2); Total Protein 6.4 g/dL (6.6-8.7)
[2025-03-09] MEDS: tocilizumab 800 MG in sodium chloride 0.9% (100 ml) 100 ML 140 MG IV (08:38)
[2025-03-09 10:23] VITALS: BP 121/69; PULSE 82; RESP 16; O2SAT 95
== END 2025-04-03 23:59 | disposition home or self-care (01) ==
PROVIDERS: PCP Family Medicine; Visit Provider Internal Medicine Rheumatology
DX: M05.79 Rheumatoid arthritis with rheumatoid factor of multiple sites without organ or systems involvement (principal); Z79.899 Other long term (current) drug therapy
CPT/HCPCS: 80076; 82565; 85025; 85651; 86140; 96365; 96375; J1200; J2919; J3262; J7050; J9999

== ENCOUNTER 2025-05-04 08:00 | Oncology outpatient (recurring) (ONCR) | payer MEDICARE, SELFPAY ==
[2025-04-06] MEDS: diphenhydrAMINE 50 mg/mL SDV 1mL 25 MG IVP (08:27)
[2025-04-06] MEDS: methylPREDNISolone sod succ 40 mg/mL INJ IVP (08:33)
[2025-04-06 08:36] VITALS: BP 152/96; PULSE 60; RESP 18; TEMP 36.1; O2SAT 96
[2025-04-06] MEDS: tocilizumab 800 MG in sodium chloride 0.9% (100 ml) 100 ML 140 MG IV (09:02)
[2025-04-06 10:12] VITALS: BP 138/86; PULSE 53; RESP 18; TEMP 36.1; O2SAT 92
[2025-05-04] MEDS: diphenhydrAMINE 50 mg/mL SDV 1mL 25 MG IVP (08:22)
[2025-05-04] MEDS: methylPREDNISolone sod succ 40 mg/mL INJ IVP (08:24)
[2025-05-04] MEDS: tocilizumab 800 MG in sodium chloride 0.9% (100 ml) 100 ML 140 MG IV (09:20)
[2025-05-04 10:31] VITALS: BP 136/80; PULSE 54; RESP 16; TEMP 35.9; O2SAT 95
== END 2025-05-04 23:59 | disposition home or self-care (01) ==
PROVIDERS: PCP Family Medicine; Visit Provider Internal Medicine Rheumatology
DX: Z53.9 Procedure and treatment not carried out, unspecified reason; M05.9 Rheumatoid arthritis with rheumatoid factor, unspecified; Z79.899 Other long term (current) drug therapy
CPT/HCPCS: 96365; 96375; 96413; J1200; J2919; J3262; J7050; J9999

== ENCOUNTER 2025-06-01 07:55 | Oncology outpatient (recurring) (ONCR) | payer MEDICARE, SELFPAY ==
[2025-06-01 08:37] VITALS: BP 132/81; PULSE 61; RESP 17; TEMP 36.7; O2SAT 94
[2025-06-01 08:41] LABS: Hematocrit 48.4 % (37-53); Hemoglobin 16.50 g/dL (11.27-16.99); Mean Corpuscular HGB Conc 34.1 g/dL (30-55); Mean Corpuscular Hemoglobin 32.4 pg (27-33); Mean Corpuscular Volume 95.1 fl (82-101); Nucleated Red Blood Cells % 0 %; Platelet Count 141 10^3/cmm (157-399); Red Blood Count 5.09 10^6/uL (3.85-5.65); White Blood Count 4.65 10^3/uL (3.29-11.43)
[2025-06-01] MEDS: diphenhydrAMINE 50 mg/mL SDV 1mL 25 MG IVP (08:48)
[2025-06-01] MEDS: methylPREDNISolone sod succ 40 mg/mL INJ IVP (08:49)
[2025-06-01 09:03] LABS: Alanine Aminotransferase 78 U/L (0-41); Albumin Level 4.6 g/dL (3.5-5.2); Alkaline Phosphatase 63 U/L (40-130); Aspartate Amino Transferase 46 U/L (0-40); Globulin 2.5 g/dL (1.3-4.6); Total Protein 7.1 g/dL (6.6-8.7)
[2025-06-01 09:29] LABS: Creatinine Clr Calc Pharmacy 114.4255
[2025-06-01] MEDS: tocilizumab 800 MG in sodium chloride 0.9% (100 ml) 100 ML 140 MG IV (09:30)
[2025-06-01 10:42] VITALS: BP 121/79; PULSE 58; RESP 18; TEMP 36.2; O2SAT 94
== END 2025-06-04 23:59 | disposition home or self-care (01) ==
PROVIDERS: PCP Family Medicine; Visit Provider Internal Medicine Rheumatology
DX: M05.79 Rheumatoid arthritis with rheumatoid factor of multiple sites without organ or systems involvement (principal); Z79.899 Other long term (current) drug therapy
CPT/HCPCS: 80076; 82565; 85025; 85651; 86140; 96375; 96413; J1200; J2919; J3262; J7050; J9999

== ENCOUNTER → 2025-06-12 13:25 | Outpatient (BNVA) | payer MEDICARE, SELFPAY | PROVIDERS: PCP Family Medicine; Visit Provider Internal Medicine Rheumatology | DX: M05.79 Rheumatoid arthritis with rheumatoid factor of multiple sites without organ or systems involvement (principal); M10.9 Gout, unspecified; Z79.899 Other long term (current) drug therapy; Z71.85 Encounter for immunization safety counseling | CPT/HCPCS: 99214 ==

== ENCOUNTER 2025-06-29 07:38 | Oncology outpatient (recurring) (ONCR) | payer MEDICARE, SELFPAY ==
[2025-06-29 08:22] LABS: Hematocrit 45.7 % (37-53); Hemoglobin 15.60 g/dL (11.27-16.99); Mean Corpuscular HGB Conc 34.1 g/dL (30-55); Mean Corpuscular Hemoglobin 32.4 pg (27-33); Mean Corpuscular Volume 94.8 fl (82-101); Nucleated Red Blood Cells % 0 %; Platelet Count 155 10^3/cmm (157-399); Red Blood Count 4.82 10^6/uL (3.85-5.65); White Blood Count 4.74 10^3/uL (3.29-11.43)
[2025-06-29] MEDS: diphenhydrAMINE 50 mg/mL SDV 1mL 25 MG IVP (08:37)
[2025-06-29] MEDS: methylPREDNISolone sod succ 40 mg/mL INJ IVP (08:38)
[2025-06-29 08:39] LABS: Alanine Aminotransferase 65 U/L (0-41); Albumin Level 4.4 g/dL (3.5-5.2); Alkaline Phosphatase 58 U/L (40-130); Aspartate Amino Transferase 40 U/L (0-40); Globulin 2.2 g/dL (1.3-4.6); Total Protein 6.6 g/dL (6.6-8.7)
[2025-06-29 08:55] VITALS: BP 109/70; PULSE 59; RESP 17; TEMP 36.6; O2SAT 94
[2025-06-29] MEDS: tocilizumab 800 MG in sodium chloride 0.9% (100 ml) 100 ML 140 MG IV (08:57)
[2025-06-29 10:08] VITALS: BP 130/81; PULSE 58; RESP 17; TEMP 36.8; O2SAT 96
== END 2025-07-04 23:59 | disposition home or self-care (01) ==
PROVIDERS: PCP Family Medicine; Visit Provider Internal Medicine Rheumatology
DX: M05.9 Rheumatoid arthritis with rheumatoid factor, unspecified (principal); Z79.899 Other long term (current) drug therapy
CPT/HCPCS: 80076; 82565; 85025; 85651; 86140; 96375; 96413; J1200; J2919; J3262; J7050; J9999

== ENCOUNTER 2025-07-27 07:27 | Oncology outpatient (recurring) (ONCR) | payer MEDICARE, SELFPAY ==
[2025-07-27 08:03] VITALS: BP 111/74; PULSE 73; RESP 17; TEMP 35.9; O2SAT 96
[2025-07-27] MEDS: diphenhydrAMINE 50 mg/mL SDV 1mL 25 MG IVP (08:19)
[2025-07-27] MEDS: methylPREDNISolone sod succ 40 mg/mL INJ IVP (08:19)
[2025-07-27] MEDS: tocilizumab 800 MG in sodium chloride 0.9% (100 ml) 100 ML 140 MG IV (08:56)
[2025-07-27 10:20] VITALS: BP 118/78; PULSE 74; RESP 18; TEMP 36.6; O2SAT 96
== END 2025-08-04 23:59 | disposition home or self-care (01) ==
PROVIDERS: PCP Family Medicine; Visit Provider Internal Medicine Rheumatology
DX: M05.9 Rheumatoid arthritis with rheumatoid factor, unspecified (principal); Z79.899 Other long term (current) drug therapy
CPT/HCPCS: 96375; 96413; J1200; J2919; J3262; J7050; J9999

== ENCOUNTER 2025-08-24 07:53 | Oncology outpatient (recurring) (ONCR) | payer MEDICARE, SELFPAY ==
[2025-08-24 07:56] VITALS: BP 157/91; PULSE 71; TEMP 35.8
[2025-08-24 08:13] LABS: Hematocrit 48.3 % (37-53); Hemoglobin 16.30 g/dL (11.27-16.99); Mean Corpuscular HGB Conc 33.7 g/dL (30-55); Mean Corpuscular Hemoglobin 32.7 pg (27-33); Mean Corpuscular Volume 97.0 fl (82-101); Nucleated Red Blood Cells % 0 %; Platelet Count 159 10^3/cmm (157-399); Red Blood Count 4.98 10^6/uL (3.85-5.65); White Blood Count 5.97 10^3/uL (3.29-11.43)
[2025-08-24] MEDS: diphenhydrAMINE 50 mg/mL SDV 1mL 25 MG IVP (08:18)
[2025-08-24] MEDS: methylPREDNISolone sod succ 40 mg/mL INJ IVP (08:22)
[2025-08-24 08:33] LABS: Alanine Aminotransferase 75 U/L (0-41); Albumin Level 4.5 g/dL (3.5-5.2); Alkaline Phosphatase 66 U/L (40-130); Aspartate Amino Transferase 42 U/L (0-40); Globulin 2.0 g/dL (1.3-4.6); Total Protein 6.5 g/dL (6.6-8.7)
[2025-08-24] MEDS: tocilizumab 800 MG in sodium chloride 0.9% (100 ml) 100 ML 140 MG IV (09:05)
[2025-08-24 10:02] VITALS: BP 131/92; PULSE 60; TEMP 36; O2SAT 97
== END 2025-09-03 23:59 | disposition home or self-care (01) ==
PROVIDERS: PCP Family Medicine; Visit Provider Internal Medicine Rheumatology
DX: M05.79 Rheumatoid arthritis with rheumatoid factor of multiple sites without organ or systems involvement; Z79.899 Other long term (current) drug therapy; Z53.9 Procedure and treatment not carried out, unspecified reason
CPT/HCPCS: 36415; 80076; 82565; 85025; 85651; 86140; 96375; 96413; J1200; J2919; J3262; J7050; J9999

== ENCOUNTER 2025-09-21 08:13 | Oncology outpatient (recurring) (ONCR) | payer MEDICARE, SELFPAY ==
[2025-09-21] MEDS: diphenhydrAMINE 50 mg/mL SDV 1mL 25 MG IVP (08:51)
[2025-09-21] MEDS: methylPREDNISolone sod succ 40 mg/mL INJ IVP (08:56)
[2025-09-21] MEDS: tocilizumab 800 MG in sodium chloride 0.9% (100 ml) 100 ML 140 MG IV (09:36)
[2025-09-21 11:42] LABS: Cholesterol 200 mg/dL (0-200); HDL Cholesterol 36 mg/dL (60-100); Thyroid Stimulating Hormone 3.09 uIU/mL (0.27-4.20); Triglycerides 265 mg/dL (0-150); Uric Acid 6.1 mg/dL (3.4-7.0)
== END 2025-10-04 23:59 | disposition home or self-care (01) ==
PROVIDERS: PCP Family Medicine; Visit Provider Internal Medicine Rheumatology
DX: M05.79 Rheumatoid arthritis with rheumatoid factor of multiple sites without organ or systems involvement (principal); Z79.899 Other long term (current) drug therapy
CPT/HCPCS: 80061; 84443; 84550; 96375; 96413; J1200; J2919; J3262; J7050; J9999